=== PATIENT | male | born 1960 | race Caucasian/White ===

== ENCOUNTER 2020-08-17 06:10 | Outpatient (REF) | payer OTHER, SELFPAY ==
[2020-08-17 06:47] LABS: COVID-19 Test Negative (Negative)
== END 2020-08-17 06:11 | disposition home or self-care (01) ==
LOC: HO.LAB 06:10
PROVIDERS: Visit Provider Internal Medicine
DX: Z20.828 Contact with and (suspected) exposure to other viral communicable diseases (principal)
CPT/HCPCS: 87635

== ENCOUNTER → 2021-10-25 10:46 | Outpatient (BNVA) | payer OTHER, SELFPAY | PROVIDERS: PCP Nurse Practitioner Family; Visit Provider Internal Medicine Pulmonary Disease ==

== ENCOUNTER 2021-11-12 07:48 | Outpatient (REF) | payer OTHER, SELFPAY ==
--- NOTE | 2021-11-12 14:37 | PFT_ITS ---
FLOWS: FEV1 79% of predicted at 2.22 L. FVC 109% of predicted at 4.10 L. FEV1 to FVC ratio of 0.51. No bronchodilator response. LUNG VOLUMES: Total lung capacity 99% of predicted at 5.78 L. Residual volume 98% of predicted at 1.93 L. Slow vital capacity 100% of predicted at 3.85 L. Expiratory reserve volume 156% of predicted at 1.5 L. Diffusion capacity is moderately decreased. IMPRESSION: No obstruction or restriction. No bronchodilator response. Decreased diffusion capacity suggests underlying emphysema for pulmonary edema or interstitial lung disease. Clinical correlation is advised. MD TAYE Naik/MODL / [id number]
== END 2021-11-12 07:49 | disposition home or self-care (01) ==
LOC: HO.RESP 07:48
PROVIDERS: PCP Nurse Practitioner Family; Visit Provider Internal Medicine Pulmonary Disease
DX: J44.9 Chronic obstructive pulmonary disease, unspecified (principal)
CPT/HCPCS: 94060; 94727; 94729

== ENCOUNTER → 2021-11-22 09:11 | Outpatient (BNVA) | payer OTHER, SELFPAY | PROVIDERS: PCP Nurse Practitioner Family; Visit Provider Internal Medicine Pulmonary Disease ==

== ENCOUNTER 2022-01-02 07:36 | Outpatient (REF) | payer OTHER, SELFPAY ==
--- NOTE | ~2022-01-02 | CT_ITS ---
EXAMINATION: CT CHEST WITHOUT CONTRAST CLINICAL INFORMATION: Nonspecific abnormal finding of the lungs COMPARISON: None TECHNIQUE: Multidetector volumetric CT imaging of the chest was done. Axial MIP volume rendering provided. Sagittal and coronal reformatted images were obtained. This CT examination was performed using dose optimization techniques as appropriate, variously including the following: *Automated exposure control *Adjustment of mA and/or kV according to patient size (this includes techniques or standardized protocols for targeted exams where dose is matched to indication/reason for exam; i.e. extremities or head) *Use of iterative reconstruction technique DLP: 108 mGy-cm FINDINGS: WATERSHED MANAGER: Scoliotic curvature of the spine with tortuous aorta. LUNGS: The central airways are patent. Mild bronchial wall thickening. Severe paraseptal and centrilobular emphysema. Minimal groundglass opacity of both lower lobes noted. No dense consolidation. No pneumothorax. There is a left lower lobe 0.2 cm nodule on series 7 image 411. Subpleural 0.2 cm left lower lobe nodule on image 325. There is a 0.3 cm right upper lobe nodule on image 230. MEDIASTINUM: Normal heart size. Coronary artery calcifications. No pericardial effusion. No mediastinal lymphadenopathy. PLEURA: There is no pleural effusion. No pleural mass or thickening. AXILLA: No lymphadenopathy. UPPER ABDOMEN: Unremarkable. OSSEOUS STRUCTURES: No acute or suspicious osseous abnormality. Multiple thoracic vertebral body compression deformities noted. Degenerative changes throughout the spine. CT/CT chest wo con IMPRESSION: Severe emphysema. Tiny pulmonary nodules noted measuring up to 0.3 cm. Consider 12 month follow-up chest CT. Minimal groundglass opacities are seen in the lower lobes, nonspecific but possibly associated with air trapping or chronic lung disease. Fleischner guidelines were followed.
== END 2022-01-02 07:37 | disposition home or self-care (01) ==
LOC: HO.CT 07:36
PROVIDERS: PCP Nurse Practitioner Family; Visit Provider Internal Medicine Pulmonary Disease
DX: R91.8 Other nonspecific abnormal finding of lung field (principal)
CPT/HCPCS: 71250

== ENCOUNTER → 2022-01-24 08:42 | Outpatient (BNVA) | payer OTHER, SELFPAY | PROVIDERS: PCP Nurse Practitioner Family; Visit Provider Internal Medicine Pulmonary Disease | DX: Z13.89 Encounter for screening for other disorder (principal) ==

== ENCOUNTER 2022-06-25 08:36 | Emergency (ER) | payer OTHER, SELFPAY ==
--- NOTE | ~2022-06-25 | CT_ITS ---
EXAMINATION: CT CHEST WITHOUT CONTRAST CLINICAL INFORMATION: Right posterior rib pain status post fall. COMPARISON: Chest CT scan dated 01/02/2022. TECHNIQUE: Multidetector volumetric CT imaging of the chest was done. Axial MIP volume rendering provided. Sagittal and coronal reformatted images were obtained. This CT examination was performed using dose optimization techniques as appropriate, variously including the following: *Automated exposure control *Adjustment of mA and/or kV according to patient size (this includes techniques or standardized protocols for targeted exams where dose is matched to indication/reason for exam; i.e. extremities or head) *Use of iterative reconstruction technique DLP: 237 mGy-cm FINDINGS: LUNGS/PLEURA/AIRWAYS: Moderate to severe upper lobe predominant centrilobular as well as mild to moderate paraseptal emphysema is again seen without significant change. No significant/suspicious pulmonary nodules are seen. Mild linear atelectasis/scarring is seen in the right middle lobe, lingula and lung bases. There are no pleural effusions. The airways are patent. MEDIASTINUM: Unremarkable thyroid gland. The thoracic aorta shows mild atherosclerosis in the arch without significant dilatation. Moderate coronary artery calcifications. No pericardial effusion. UPPER ABDOMEN: MUSCULOSKELETAL: The ribs appear intact without acute fracture. Mild mid thoracic levoscoliosis with apex at T8-9. Multilevel superior endplate compression deformities are again seen without significant change, most pronounced at at T6 with associated increased kyphosis. Mild degenerative changes are noted at the sternomanubrial joint. The sternum is intact with mild carinatum deformity. SOFT TISSUES: Unremarkable. CT/CT chest wo IV con IMPRESSION: 1. No evidence for acute traumatic injury. Chronic multilevel vertebral body compression deformities and scoliosis without significant interval change. 2. Centrilobular/paraseptal emphysema without significant change. No significant new/suspicious pulmonary abnormality. No acute cardiopulmonary process. Following Fleischner Society guidelines, imaging follow-up is recommended as clinically indicated.
--- NOTE | ~2022-06-25 | XR_ITS ---
EXAMINATION: XR RIBS, RIGHT, PA CHEST CLINICAL INFORMATION: Right lower chest pain. COMPARISON: Chest CT scan dated 01/02/2022 TECHNIQUE: 3 views of the right ribs were obtained along with a PA view of the chest. A skin marker was placed over the inferior right ribs. FINDINGS: Lungs are clear. No consolidation, pneumothorax, or pleural effusion. The cardiomediastinal silhouette and pulmonary vasculature are normal. The right ribs appear intact without overt fracture. Thoracolumbar scoliosis and vertebral body compression deformities are again seen without significant change. XR/XR ribs RT min 3V w CXR1V IMPRESSION: Unremarkable examination.
[2022-06-25 08:49] VITALS: BP 119/73; PULSE 65; RESP 18; TEMP 36.7; O2SAT 98; BMI 28.0
[2022-06-25 09:20] LABS: COVID-19 Test Negative (Negative); IDNOW Serial# 16C4AD1C
--- NOTE | 2022-06-25 09:25 | ED_ITS ---
HPI - Back Pain/Injury General Chief Complaint: Back Pain/Injury Stated Complaint: R side pain Time Seen by Provider: 06/25/22 09:11 Source: patient Mode of arrival: ambulatory Limitations: no limitations History of Present Illness HPI Narrative: 62 yo male with history of seizure disorder presents to the ER for evaluation of right lower posterior rib pain for the last week-week and a half. He sustained a fall 2 weeks ago and fell on his right side. He did not have immediate pain to the right posterior ribs after the fall. The pain started several days later. He reports the pain is worse with deep breaths, specific movements and when lying on his left side. It is also worse with palpation. He denies any blood in his urine, dysuria, frequency or urgency. He denies any fever or chills. He denies any lower extremity swelling. No chest pain or shortness of breath. MD elicited complaint: back pain and back injury Onset (ago): day(s) (7-10) Timing: constant and progressively worsening Severity: moderate Pain scale (0-10): 6 Quality: aching Location: right flank Radiation: none Exacerbating factors: movement, deep breaths and coughing/sneezing Relieving factors: sitting upright Context: fall Associated symptoms: denies other symptoms Treatments prior to arrival: acetaminophen Work related injury: No Related Data Home Medications Medication Instructions Recorded Confirmed ipratropium 20 mcg-albuterol 100 1 puff inhalation Q6H 10/25/21 10/25/21 mcg/actuation mist for inhalation (Combivent Respimat) phenytoin sodium extended 30 mg 450 mg PO 10/25/21 10/25/21 capsule (Dilantin) Previous Rx's Medication Instructions Recorded lidocaine 5 % topical patch 1 patch topical DAILY #15 ea 06/25/22 naproxen 500 mg tablet 500 mg PO BID PRN pain #20 tabs 06/25/22 Allergies Allergy/AdvReac Type Severity Reaction Status Date / Time No Known Allergies Allergy Verified 01/24/22 08:44 [No Known Allergies*] Review of Systems Review of Systems: Constitutional: No Fever, No Chills ENT/Mouth: No sore throat, No Rhinorrhea Cardiovascular: No Chest Pain, No SOB, No Orthopnea, No Edema Respiratory: No Cough, No Sputum, No Wheezing, No dyspnea Gastrointestinal: No Nausea, No Vomiting, No Diarrhea, No abdominal Pain Genitourinary: No Dysuria, No Urinary Frequency, No Hematuria Musculoskeletal: + joint pain, + Myalgias Skin: No Skin Lesions, No rash Neuro: No Weakness, No Numbness, No Dizziness, No Headache Psych: No Anxiety/Panic, No Depression Heme/Lymph: No Bruising, No Lymphadenopathy Endocrine: No Polyuria, No Polydipsia PMFSH Social History Social History Advance Directives: No Advance Directives Information Provided: Yes Physical Exam Vital Signs: Vital Signs: Last Vital Signs Temp 98.1 F 06/25/22 08:49 Pulse 65 06/25/22 08:49 Resp 18 06/25/22 08:49 BP 119/73 06/25/22 08:49 Pulse Ox 98 06/25/22 08:49 O2 Del Method 06/25/22 08:49 BMI result Body Mass Index 28.0 Appearance: Alert. Oriented X3. No acute distress. Eyes: Pupils equal, round and reactive to light. ENT: Pharynx normal. Neck: Normal inspection. Neck supple. CVS: Normal heart rate and rhythm. Pulses normal. Respiratory: No respiratory distress. Breath sounds normal. Abdomen: Soft and nontender. No RUQ tenderness. +BS x4 Back: Normal inspection. Right flank/right lower posterior ribs with moderate tenderness. No crepitus. No ecchymosis. Skin: Skin warm and dry. Normal skin color. Normal skin turgor. No rashes. Extremities: No lower extremity edema. Neuro: Oriented X 3. No motor deficit. No sensory deficit. Course Course Course Narrative: 62-year-old male presents to the ER for evaluation of right lower, posterior rib pain after fall 2 weeks ago. His pain started several days after the fall which is not consistent with a rib fracture. He has been coughing and this is making the pain worse. Question developing pneumonia. Will also need to rule out PE. On arrival to the ER his vital signs are within normal limits. He is saturating 98% on room air. Will get lab workup including D-dimer. Will decide on CT scan with or without contrast after the D-dimer results. His chest x-ray of the ribs did not show any acute fractures. Reevaluation(s) Reevaluation #1: Lab workup is normal. Will get dry CT scan to evaluate his pain. Reevaluation #2: CT scan did not show any acute traumatic injuries. No broken ribs. There are chronic multi level vertebral body compression deformities and scoliosis without significant change from December exam. He has emphysematous changes in his lungs but no new pulmonary abnormality. Results were discussed with the patient. Will start him on anti-inflammatory medication as well as lidocaine patches. Declining need for opiates, he is sleeping well at night, and pain is not keeping him up. He is stable for discharge home with outpatient follow-up and supportive care. MDM - Back Pain/Injury Lab Data Result diagrams: 06/25/22 09:36 06/25/22 09:36 Labs: Lab Results 06/25/22 06/25/22 06/25/22 Range/Units 08:53 09:36 09:36 WBC 7.2 (4.8-10.8) X10*3/uL RBC 5.05 (4.60-5.80) X10*6/uL Hgb 15.3 (14.0-18.0) g/dl Hct 45.9 (42.0-52.0) % MCV 90.9 (80.0-98.0) fL MCH 30.3 (27.0-33.0) pg MCHC 33.3 (31.0-36.0) g/dl RDW 13.0 (11.0-16.0) % Plt Count 268 (160-400) X10*3/uL MPV 9.3 L (9.4-12.4) fL Immature Gran % (Auto) 0.4 (0.0-0.4) % Neut % (Auto) 68.9 (45-73) % Lymph % (Auto) 14.9 L (20-40) % [place] % (Auto) 12.9 H (2-11) % Eos % (Auto) 2.2 (0-4) % Baso % (Auto) 0.7 (0-2) % Lymph # (Auto) 1.1 L (1.2-4.9) X10*3/uL [place] # (Auto) 0.9 (0.1-1.2) X10*3/uL Eos # (Auto) 0.2 (0.0-0.4) X10*3/uL Baso # (Auto) 0.1 (0.0-0.2) X10*3/uL Abs Immat Gran (auto) 0.03 (0.00-0.03) X10*3/uL Absolute Neuts (auto) 5.0 (2.0-8.3) x10*3/uL Absolute Nucleated RBC 0.000 (0.0-0.012) X10*3/uL Nucleated RBC % (auto) 0.0 (0.0-0.2) /100WBC PT 11.0 (10.0-13.1) SEC INR 1.0 (0.9-1.1) APTT 35.6 (26.0-36.4) SEC D-Dimer High Sensitivty < 150 NG/ML Sodium (135-145) mmol/L Potassium (3.3-5.1) mmol/L Chloride (96-108) mmol/L Carbon Dioxide (22-29) mmol/L Anion Gap (12-20) BUN (9-16) mg/dL Creatinine (0.5-1.4) mg/dL Estim Creat Clear Calc Estimated GFR Random Glucose (60-115) mg/dL Calcium (8.4-10.2) mg/dL Magnesium (1.6-2.6) mg/dL Total Bilirubin (0.0-1.0) mg/dL Direct Bilirubin (0.0-0.5) mg/dL AST (5-37) U/L ALT (0-40) U/L Alkaline Phosphatase (39-117) U/L Total Protein (6.5-8.0) g/dL Albumin (3.5-5.0) g/dL COVID-19 (JESSICA) Negative (Negative) COVID-19 Clin Com See Note 06/25/22 Range/Units 09:36 WBC (4.8-10.8) X10*3/uL RBC (4.60-5.80) X10*6/uL Hgb (14.0-18.0) g/dl Hct (42.0-52.0) % MCV (80.0-98.0) fL MCH (27.0-33.0) pg MCHC (31.0-36.0) g/dl RDW (11.0-16.0) % Plt Count (160-400) X10*3/uL MPV (9.4-12.4) fL Immature Gran % (Auto) (0.0-0.4) % Neut % (Auto) (45-73) % Lymph % (Auto) (20-40) % [place] % (Auto) (2-11) % Eos % (Auto) (0-4) % Baso % (Auto) (0-2) % Lymph # (Auto) (1.2-4.9) X10*3/uL [place] # (Auto) (0.1-1.2) X10*3/uL Eos # (Auto) (0.0-0.4) X10*3/uL Baso # (Auto) (0.0-0.2) X10*3/uL Abs Immat Gran (auto) (0.00-0.03) X10*3/uL Absolute Neuts (auto) (2.0-8.3) x10*3/uL Absolute Nucleated RBC (0.0-0.012) X10*3/uL Nucleated RBC % (auto) (0.0-0.2) /100WBC PT (10.0-13.1) SEC INR (0.9-1.1) APTT (26.0-36.4) SEC D-Dimer High Sensitivty NG/ML Sodium 136 (135-145) mmol/L Potassium 4.9 (3.3-5.1) mmol/L Chloride 101 (96-108) mmol/L Carbon Dioxide 27 (22-29) mmol/L Anion Gap 13 (12-20) BUN 15 (9-16) mg/dL Creatinine 1.04 (0.5-1.4) mg/dL Estim Creat Clear Calc 64.5 Estimated GFR > 60 Random Glucose 93 (60-115) mg/dL Calcium 9.7 (8.4-10.2) mg/dL Magnesium 1.9 (1.6-2.6) mg/dL Total Bilirubin 0.4 (0.0-1.0) mg/dL Direct Bilirubin 0.2 (0.0-0.5) mg/dL AST 21 (5-37) U/L ALT 16 (0-40) U/L Alkaline Phosphatase 106 (39-117) U/L Total Protein 7.3 (6.5-8.0) g/dL Albumin 4.5 (3.5-5.0) g/dL COVID-19 (JESSICA) (Negative) COVID-19 Clin Com Discharge Plan Discharge Clinical Impression: Contusion of rib on right side Patient Disposition: Home, Self-Care Instructions: Rib Contusion (ED) Additional Instructions: Your lab workup today was unremarkable. Your CT scan did not show any evidence of acute traumatic injuries. No broken ribs. Recommend using the prescribed lidocaine patches and taking the prescribed anti- inflammatory as needed for pain. Recommend using ice several times a day for the next 48 hours and then switch to heat. Follow-up with her primary care doctor. If you develop new or worsening symptoms call 911 or come back to the ER for further evaluation. Prescriptions: New lidocaine 5 % adhesive patch,medicated 1 patch topical DAILY Qty: 15 0RF Rx Instructions: leave on most painful area for up to 12 hrs naproxen 500 mg tablet 500 mg PO BID PRN (Reason: pain) Qty: 20 0RF No Action Dilantin 30 mg capsule 450 mg PO Combivent Respimat 20-100 mcg/actuation mist 1 puff inhalation Q6H
[2022-06-25 09:45] LABS: MANUAL DIFF FLAG NO
[2022-06-25 09:47] LABS: Basophils Absolute Auto 0.1 X10*3/uL (0.0-0.2); Basophils Percent Auto 0.7 % (0-2); Eosinophils Absolute Auto 0.2 X10*3/uL (0.0-0.4); Eosinophils Percent Auto 2.2 % (0-4); Hematocrit 45.9 % (42.0-52.0); Hemoglobin 15.3 g/dl (14.0-18.0); Imm Gran Abs Auto 0.03 X10*3/uL (0.00-0.03); Imm Gran Pct Auto 0.4 % (0.0-0.4); Lymphocytes Absolute Auto 1.1 X10*3/uL (1.2-4.9); Lymphocytes Percent Auto 14.9 % (20-40); Mean Corpuscular HGB Conc 33.3 g/dl (31.0-36.0); Mean Corpuscular Hemoglobin 30.3 pg (27.0-33.0); Mean Corpuscular Volume 90.9 fL (80.0-98.0); Mean Platelet Volume 9.3 fL (9.4-12.4); Monocytes Absolute Auto 0.9 X10*3/uL (0.1-1.2); Monocytes Percent Auto 12.9 % (2-11); Neutrophils Percent Auto 68.9 % (45-73); Platelet Count 268 X10*3/uL (160-400); Red Blood Count 5.05 X10*6/uL (4.60-5.80); White Blood Count 7.2 X10*3/uL (4.8-10.8)
[2022-06-25 09:56] LABS: Partial Thromboplastin Time 35.6 SEC (26.0-36.4)
[2022-06-25 09:57] LABS: D Dimer High Sensitivity < 150 NG/ML
[2022-06-25 10:09] LABS: Alanine Aminotransferase 16 U/L (0-40); Albumin Level 4.5 g/dL (3.5-5.0); Alkaline Phosphatase 106 U/L (39-117); Anion Gap 13 (12-20); Aspartate Amino Transferase 21 U/L (5-37); Bilirubin Direct 0.2 mg/dL (0.0-0.5); Bilirubin Total 0.4 mg/dL (0.0-1.0); Blood Urea Nitrogen 15 mg/dL (9-16); Calcium 9.7 mg/dL (8.4-10.2); Carbon Dioxide 27 mmol/L (22-29); Chloride 101 mmol/L (96-108); Creatinine Clr Calc Pharmacy 64.5; Estimated Glomerular Filt Rate > 60; Glucose Random 93 mg/dL (60-115); Magnesium 1.9 mg/dL (1.6-2.6); Potassium 4.9 mmol/L (3.3-5.1); Sodium 136 mmol/L (135-145); Total Protein 7.3 g/dL (6.5-8.0)
== END 2022-06-25 11:40 | disposition home or self-care (01) ==
PROVIDERS: Physician Assistant; Emergency Provider Emergency Medicine; PCP Nurse Practitioner Family
DX: S20.211A Contusion of right front wall of thorax, initial encounter (principal); W19.XXXA Unspecified fall, initial encounter; Z20.822 Contact with and (suspected) exposure to COVID-19; Y93.9 Activity, unspecified; Y92.9 Unspecified place or not applicable; Y99.9 Unspecified external cause status
CPT/HCPCS: 36415; 71101; 71250; 80048; 80076; 83735; 85025; 85379; 85610; 85730; 87635; 99282; 99284

== ENCOUNTER 2023-01-15 06:39 | Outpatient (REF) | payer OTHER, SELFPAY ==
--- NOTE | ~2023-01-15 | CT_ITS ---
EXAMINATION: CT CHEST WITHOUT CONTRAST CLINICAL INFORMATION: Pulmonary nodules COMPARISON: 06/25/2022 TECHNIQUE: Multidetector volumetric CT imaging of the chest was done. Axial MIP volume rendering provided. Sagittal and coronal reformatted images were obtained. This CT examination was performed using dose optimization techniques as appropriate, variously including the following: *Automated exposure control *Adjustment of mA and/or kV according to patient size (this includes techniques or standardized protocols for targeted exams where dose is matched to indication/reason for exam; i.e. extremities or head) *Use of iterative reconstruction technique DLP: 222 FINDINGS: LUNGS: Moderate to severe emphysema. Mild bronchial wall thickening seen to a greater degree in the bilateral lower lobes likely reflects chronic small airways inflammation or infection. Right middle lobe subpleural 9 mm nodule (5:295) may reflect focal scarring versus a nodule, similar to prior study. MEDIASTINUM: No mediastinal adenopathy. Lack of IV contrast limits evaluation for hilar adenopathy. Dense coronary artery atherosclerotic calcifications. PLEURA: There is no pleural effusion. No pleural mass or thickening. AXILLA: No lymphadenopathy. UPPER ABDOMEN: Unremarkable. OSSEOUS STRUCTURES/SOFT TISSUES: Degenerative changes of the spine. Healing right 10th and [address]/CT chest wo IV con IMPRESSION: 1. Right middle lobe subpleural 9 mm nodule may reflect focal scarring versus a nodule, similar to prior study. 2. Moderate to severe emphysema. 3. Mild bronchial wall thickening seen to a greater degree in the bilateral lower lobes likely reflects chronic small airways inflammation or infection. According to the UPDATED 2017 Fleischner Society recommendations, the advised followup imaging for a single solid nodule measuring 8 mm or greater is: Consider CT, PET/CT, or tissue sampling at 3 months.
== END 2023-01-15 06:40 | disposition home or self-care (01) ==
LOC: HO.CT 06:39
PROVIDERS: PCP Nurse Practitioner Family; Visit Provider Internal Medicine Pulmonary Disease
DX: R91.8 Other nonspecific abnormal finding of lung field (principal)
CPT/HCPCS: 71250

== ENCOUNTER → 2023-01-24 09:36 | Outpatient (BNVA) | payer OTHER, SELFPAY | PROVIDERS: PCP Nurse Practitioner Family; Visit Provider Internal Medicine Pulmonary Disease | DX: Z13.89 Encounter for screening for other disorder (principal) ==

== ENCOUNTER 2023-08-08 10:53 | Outpatient (AMB) | payer OTHER, SELFPAY ==
--- NOTE | 2023-08-08 13:25 | AM.OFFWIN_ITS ---
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 Patient Tobacco Use Status: Former Tobacco user Allergies No Known Allergies [No Known Allergies*] Allergy (Verified 08/08/23 13:28) Do you need a note to return to daycare/school/sports/work: Yes HPI HPI Comments History of Present Illness Details This is a 63-year-old male who presents to the office today for sick visit. Patient complaining of a productive cough, low-grade fevers ( T-max of 100.7? F), myalgias/ arthralgias, and mild shortness of breath with heavy exertion for the past 3 days. He denies a history of asthma or COPD but he has a documented history of COPD as well as Combivent inhaler. He denies any lower extremity swelling. He denies any recent travel, surgery, or immobilization. [facility] Social History Patient Tobacco Use Status: Former Tobacco user Review of Systems Const All systems reviewed & are unremarkable except as noted in HPI and below Reports no additional complaints Eyes Reports no additional complaints ENT Reports no additional complaints Card Reports no additional complaints Resp Reports no additional complaints GI Reports no additional complaints Reports no additional complaints Musc Reports no additional complaints Skin/Breast Reports system reviewed and no additional complaints, except as documented Neuro Reports no additional complaints Psych Reports no additional complaints Endo Reports no additional complaints Mc/Lymph Reports no additional complaints Aller/Immun Reports no additional complaints Physical Exam Vital Signs: Last Vital Signs Temp 99.4 F 08/08/23 13:26 Pulse 124 H 08/08/23 13:26 BP 112/54 L 08/08/23 13:26 Pulse Ox 90 L 08/08/23 13:26 Oxygen Delivery Method Room Air 08/08/23 13:26 Const Other: Vital signs reviewed. Constitutional: Non-toxic appearing. No acute distress. Well-developed and well-nourished. HEENT: Normocephalic and atraumatic. Skin: Warm and dry. No rashes or lesions noted. Neck: Full and painless range of motion. No cervical lymphadenopathy. Cardio: Tachycardic but regular rhythm. No murmurs, gallops, or rubs. No lower extremity edema. No JVD. Pulmonary: No respiratory distress. No accessory muscle usage. Scant expiratory wheezing throughout. Gastrointestinal: Soft, non-tender, and non-distended in all 4 quadrants. Normoactive bowel sounds in all 4 quadrants. Musculoskeletal: Normal range of motion in joints throughout the body. No deformity or other signs of injury. Neuro: Alert and oriented x4. Cranial nerves 2-12 grossly intact. No focal deficits appreciated. Psych: Normal mood and affect. Assessment & Plan Assessment & Plan (1) Acute bronchitis: Code(s): J20.9 - Acute bronchitis, unspecified (2) COPD with acute exacerbation: Code(s): J44.1 - Chronic obstructive pulmonary disease with (acute) exacerbation (3) Community acquired pneumonia: Code(s): J18.9 - Pneumonia, unspecified organism Plan This is a 63-year-old male presenting to the office complaining of low-grade fevers, productive cough, and mild shortness of breath. On physical examination, he had scant expiratory wheezing but he is otherwise nontoxic appearing. Patient has a documented history of chronic obstructive pulmonary disease and his oxygen saturation is 90% on room air, which is borderline low but in light of COPD history, 90% is within the goal oxygen saturation range. Patient is also tachycardic, which I think is related to likely pneumonia and COPD exacerbation. I have very low suspicion for pulmonary embolism at this time given no lower extremity edema, no recent travel/surgery/immobilizations, and no risk factors for hypercoagulability though I did bring up the concern of PE with the patient but he was not interested in proceeding to emergency room at this time. History and physical most consistent with acute COPD exacerbation and acute bronchitis in the setting of upper respiratory tract infection and likely community- acquired pneumonia. We will check a chest x-ray. Patient has been sent home on p.o. amoxicillin 1000 mg twice daily x5 days and p.o. azithromycin 500 mg today followed by 250 mg daily x4 days for treatment of presumed community-acquired pneumonia. He was also sent home on benzonatate 100 mg 3 times daily as needed. He was also sent home on a prednisone taper for likely COPD exacerbation. Patient was advised to follow-up here or proceed directly to the emergency room if he were to develop worsening fever/ chills, worsening sputum production, worsening shortness of breath, or hemoptysis. Patient feels comfortable going home at this time. He verbalized his understanding and he is in agreement with the plan. Orders: Orders 2 XR chest 2V Today R05.9 - Cough, unspecified Medications: New amoxicillin 1,000 mg (2 x 500 mg) PO Q12H 10 caps 0RF benzonatate 100 mg PO TID PRN 20 caps 0RF cough prednisone take 4 tablets daily x3 days followed by 3 tablets daily x3 days followed by 2 tablets daily x3 days followed by 1 tablet daily x3 days followed by 1/2 tablet daily x2 days. 10 mg PO DIRECTED 31 tabs 0RF prednisone 40 mg (2 x 20 mg) PO DAILY 10 tabs 0RF azithromycin For 250 mg dose pack: take 500 mg today (day 1), then 250 mg for 4 days (days 2-5) PO 6 tabs 0RF Coding Level of Care Code New Pt Level 3 (53433) Diagnoses Acute bronchitis J20.9 COPD with acute exacerbation J44.1 Community acquired pneumonia J18.9
[2023-08-08 13:26] VITALS: BP 112/54; PULSE 124; TEMP 37.4; O2SAT 90
== END 2023-08-08 14:00 | disposition home or self-care (01) ==
PROVIDERS: PCP Nurse Practitioner Family; Visit Provider Physician Assistant Medical
DX: J20.9 Acute bronchitis, unspecified (principal); J44.1 Chronic obstructive pulmonary disease with (acute) exacerbation; J18.9 Pneumonia, unspecified organism
CPT/HCPCS: 99203

== ENCOUNTER 2023-08-08 13:48 | Outpatient (REF) | payer OTHER, SELFPAY ==
--- NOTE | ~2023-08-08 | XR_ITS ---
EXAMINATION: XR CHEST CLINICAL INFORMATION: Cough. COMPARISON: 06/25/2022. TECHNIQUE: 2 views of the chest were obtained. FINDINGS: The cardiomediastinal silhouette is stable. The lung rosado are hyperinflated. There is mild diffuse interstitial prominence. There is no focal lung consolidation or evidence for significant pleural effusion. There is an apparent mid to upper thoracic compression fracture. XR/XR chest 2V IMPRESSION: COPD. No focal consolidation or significant pleural effusion. Mid to upper thoracic compression fracture. A T6 compression fracture was seen on CT performed 01/02/2022.
== END 2023-08-08 13:49 | disposition home or self-care (01) ==
LOC: HO.HMGCX 13:48
PROVIDERS: PCP Nurse Practitioner Family; Visit Provider Physician Assistant Medical
DX: R05.9 Cough, unspecified (principal)
CPT/HCPCS: 71046

== ENCOUNTER 2023-10-29 08:56 | Inpatient (IN) | payer OTHER, SELFPAY ==
[2023-10-29] VITALS (9 sets, daily range): BP systolic 100–121; BP diastolic 51–66; PULSE 96–120; RESP 16–22; TEMP 36.7–37.8; O2SAT 88–95; BMI 25.8
[2023-10-29 09:58] LABS: Alanine Aminotransferase 16 U/L (0-40); Albumin Level 4.2 g/dL (3.5-5.0); Alkaline Phosphatase 100 U/L (39-117); Anion Gap 10 (12-20); Aspartate Amino Transferase 27 U/L (5-37); Bilirubin Direct 0.2 mg/dL (0.0-0.5); Bilirubin Total 0.4 mg/dL (0.0-1.0); Blood Urea Nitrogen 10 mg/dL (9-16); Calcium 9.6 mg/dL (8.4-10.2); Carbon Dioxide 25 mmol/L (22-29); Chloride 105 mmol/L (96-108); Estimated Glomerular Filt Rate > 60; Glucose Random 113 mg/dL (60-115); Lipase 19 U/L (8-78); Potassium 4.5 mmol/L (3.3-5.1); Sodium 135 mmol/L (135-145); Total Protein 7.3 g/dL (6.5-8.0)
--- NOTE | 2023-10-29 10:22 | ED.GENADULT ---
HPI - General Adult General Chief complaint: General Medical Stated complaint: Fever Time Seen by Provider: 10/29/23 10:18 Source: patient Mode of arrival: ambulatory Limitations: no limitations History of Present Illness HPI narrative: 63-year-old male presents with fatigue, malaise, myalgias, productive cough (very thick yellowgreen sputum) that is been ongoing for the past two months worsening. Also reports fevers and chills, he has been taking Tylenol with little to no relief. 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 Patient denies chest pain, shortness of breath, nausea, vomiting, abdominal pain, headache, vision changes, dizziness and weakness. Patient does have COPD does not wear home oxygen. Baseline O2 94% on RA Related Data Home Medications Medication Instructions Recorded Confirmed ipratropium 20 mcg-albuterol 100 1 puff inhalation Q6H 10/25/21 10/25/21 mcg/actuation mist for inhalation (Combivent Respimat) phenytoin sodium extended 30 mg 450 mg PO 10/25/21 10/25/21 capsule (Dilantin) Previous Rx's Medication Instructions Recorded lidocaine 5 % topical patch 1 patch topical DAILY #15 ea 06/25/22 naproxen 500 mg tablet 500 mg PO BID PRN pain #20 tabs 06/25/22 amoxicillin 500 mg capsule 1,000 mg (2 x 500 mg) PO Q12H #10 08/08/23 caps azithromycin 250 mg tablet See Rx Instructions PO .COMPLEX #6 08/08/23 tabs benzonatate 100 mg capsule 100 mg PO TID PRN cough #20 caps 08/08/23 prednisone 10 mg tablet 10 mg PO DIRECTED #31 tabs 08/08/23 prednisone 20 mg tablet 40 mg (2 x 20 mg) PO DAILY #10 tabs 08/08/23 Allergies Allergy/AdvReac Type Severity Reaction Status Date / Time No Known Allergies Allergy Verified 10/29/23 09:15 [No Known Allergies*] Review of Systems Review of Systems: Constitutional : No Weight loss, + Fever, No Chills, + Fatigue, + Malaise ENT/Mouth : No sore throat, No Rhinorrhea Eyes: No Eye Pain, No Swelling, No Redness Cardiovascular : No Chest Pain, No SOB, No Dyspnea on Exertion, No Orthopnea, No Edema, No Palpitations Respiratory : + Cough, No Sputum, No Wheezing Gastrointestinal : No Nausea, No Vomiting, No Diarrhea, No Constipation, No abdominal Pain, No Hematochezia, No Melena Genitourinary : No Dysuria, No Urinary Frequency, No Hematuria, Musculoskeletal : No joint pain, + Myalgias, No Joint Swelling Skin : No Skin Lesions, No rash Neuro : No Weakness, No Numbness, No Dizziness, No Headache Psych : No Anxiety/Panic, No Depression All other systems reviewed and are negative Yes all other systems are reviewed and are negative [facility] Past Medical History Attestation statement: The following information was validated with the patient. Source: old records reviewed and nursing notes reviewed Onset Date is defined in the Problem List Problems that require an onset date and time if occurred within 24 hrs of arrival to the ED Aortic Dissection and Rupture; Neurologic impairment; Cardiopulmonary Arrest; Endotracheal Intubation; Insertion or Replacement of Mechanical Circulatory Assist Device Social History Social History Patient Tobacco Use Status: Former Tobacco user Advance Directives: No Advance Directives Information Provided: No Physical Exam ED Vital Signs: Vital Signs - 24 hr 10/29/23 09:12 Temperature 99.2 F Pulse Rate 106 H Respiratory Rate 20 Blood Pressure 121/64 Pulse Oximetry 92 Oxygen Delivery Method Room Air BMI result Body Mass Index 25.8 vss Appearance: Alert.? Oriented X3.? No acute distress.? Head: Normocephalic, atraumatic, no step-offs or deformities Eyes: Pupils equal, round and reactive to light.? ENT: Pharynx normal.? Neck: Normal inspection.? Neck supple.? CVS: Rapid regular rhythm likely sinus tachycardia.? Pulses normal.? Respiratory: No respiratory distress.? Breath sounds with expiratory wheezing bilaterally and faint crackles to b/l lower lobes Abdomen: Soft and nontender.? Skin: Skin warm and dry.? Normal skin color.? Normal skin turgor.? Extremities: No lower extremity edema.? No calf ttp. 5/5 strength to bilateral upper and lower extremities Back: No midline tenderness, no C-spine tenderness, full range of motion, no CVA tenderness bilaterally Neuro: Oriented X 3.? No motor deficit.? No sensory deficit. CN 2-12 intact Course Reevaluation(s) Reevaluation #1: Chest x-ray with COPD, severe thoracic compression fracture deformities. CBC with no acute findings. Chemistry unremarkable. Patient noted to be COVID positive. Ambulatory O2 patient is saturating 87% on room air. Complaining of shortness of breath. Plan hospital admission Time: 10:34 Medical Decision Making Medical Decision Making [facility] Narrative: 63-year-old male presents with fatigue, malaise, myalgias, productivecough for a few months. 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 Unlikely ACS, PE, dissection, acute respiratory distress Plan at this time viral testing, basic labs, chest x-ray. Differential Diagnosis Differential Diagnoses: The differential diagnosis associated with the presentation includes History and physical exam concerning for possible chronic lung condition versus viral illness versus flu versus COVID versus RSV versus bronchitis. Unlikely ACS, PE, dissection, acute respiratory distress Admission/Observation Consideration of admission/observation: Escalation of care including admission/observation considered Possible Lab Data [facility] Lab Attestation statement: I reviewed the patient's lab results. 10/29/23 09:31 10/29/23 09:31 Labs: Lab Results 10/29/23 10/29/23 Range/Units 09:30 09:31 WBC 8.6 (4.8-10.8) X10*3/uL RBC 5.05 (4.60-5.80) X10*6/uL Hgb 15.1 (14.0-18.0) g/dl Hct 45.2 (42.0-52.0) % MCV 89.5 (80.0-98.0) fL MCH 29.9 (27.0-33.0) pg MCHC 33.4 (31.0-36.0) g/dl RDW 13.8 (11.0-16.0) % Plt Count 221 (160-400) X10*3/uL MPV 9.3 L (9.4-12.4) fL Immature Gran % (Auto) 0.3 (0.0-0.4) % Neut % (Auto) 70.6 (45-73) % Lymph % (Auto) 6.7 L (20-40) % Norton % (Auto) 16.7 H (2-11) % Eos % (Auto) 5.1 H (0-4) % Baso % (Auto) 0.6 (0-2) % Lymph # (Auto) 0.6 L (1.2-4.9) X10*3/uL Norton # (Auto) 1.4 H (0.1-1.2) X10*3/uL Eos # (Auto) 0.4 (0.0-0.4) X10*3/uL Baso # (Auto) 0.1 (0.0-0.2) X10*3/uL Abs Immat Gran (auto) 0.03 (0.00-0.03) X10*3/uL Absolute Neuts (auto) 6.1 (2.0-8.3) x10*3/uL Absolute Nucleated RBC 0.000 (0.0-0.012) X10*3/uL Nucleated RBC % (auto) 0.0 (0.0-0.2) /100WBC Sodium 135 (135-145) mmol/L Potassium 4.5 (3.3-5.1) mmol/L Chloride 105 (96-108) mmol/L Carbon Dioxide 25 (22-29) mmol/L Anion Gap 10 L (12-20) BUN 10 (9-16) mg/dL Creatinine 0.96 (0.5-1.4) mg/dL Estim Creat Clear Calc 65.0 Estimated GFR > 60 Random Glucose 113 (60-115) mg/dL Calcium 9.6 (8.4-10.2) mg/dL Total Bilirubin 0.4 (0.0-1.0) mg/dL Direct Bilirubin 0.2 (0.0-0.5) mg/dL AST 27 (5-37) U/L ALT 16 (0-40) U/L Alkaline Phosphatase 100 (39-117) U/L Total Protein 7.3 (6.5-8.0) g/dL Albumin 4.2 (3.5-5.0) g/dL Lipase 19 (8-78) U/L Influenza Type A (PCR) NEGATIVE (Negative) Influenza Type B (PCR) NEGATIVE (Negative) RSV RNA Qual (PCR) NEGATIVE (Negative) SARS-CoV-2 RNA (RT-PCR) POSITIVE A (Negative) Independent Interpretation I performed an independent interpretation of an: Plain X-Ray (unremarkable ) Radiology Impression Discussion of test interpretation with radiology: I have reviewed the radiologist's reading. Chronic Conditions Patient?s care impacted by: Other (copd ) Critical Care Time Critical Care Time Critical Care Time: Yes Total Critical Care Time: 35 Attestation: I attest to this time spent taking care of the patient, obtaining history, physical, reviewing labs, imaging, speaking to hospitalist Discharge Plan Discharge Clinical Impression: COVID-19, COPD (chronic obstructive pulmonary disease) Prescriptions: No Action lidocaine 5 % adhesive patch,medicated 1 patch topical DAILY Qty: 15 0RF Rx Instructions: leave on most painful area for up to 12 hrs naproxen 500 mg tablet 500 mg PO BID PRN (Reason: pain) Qty: 20 0RF prednisone 20 mg tablet 40 mg PO DAILY Qty: 10 0RF azithromycin 250 mg tablet See Rx Instructions PO .COMPLEX Qty: 6 0RF Rx Instructions: For 250 mg dose pack: take 500 mg today (day 1), then 250 mg for 4 days (days 2-5) PO amoxicillin 500 mg capsule 1,000 mg PO Q12H Qty: 10 0RF benzonatate 100 mg capsule 100 mg PO TID PRN (Reason: cough) Qty: 20 0RF prednisone 10 mg tablet 10 mg PO DIRECTED Qty: 31 0RF Rx Instructions: take 4 tablets daily x3 days followed by 3 tablets daily x3 days followed by 2 tablets daily x3 days followed by 1 tablet daily x3 days followed by 1/2 tablet daily x2 days. Dilantin 30 mg capsule 450 mg PO Combivent Respimat 20-100 mcg/actuation mist 1 puff inhalation Q6H
--- NOTE | 2023-10-29 11:23 | PHA.MEDREC ---
Pharmacy Consult ? Medication Reconciliation Pharmacy has completed the medication reconciliation. spoke with patient to confirm medications. He reports taking vitamin C and magnesium but is unsure of the doses.
[2023-10-29 11:47] LABS: Procalcitonin 0.05 ng/mL
--- NOTE | 2023-10-29 11:47 | PC.NURSE ---
pt receiving breathing treatment at this time.
--- NOTE | 2023-10-29 12:08 | PC.NURSE ---
medication administered per provider order. pt did not respond to treatment via RT - states that it did not help. RT placed pt on 2L via NC for support. no sob/wob noted. respirations even and unlabored. bedside for support. call workman placed within reach.
--- NOTE | 2023-10-29 13:16 | PM.IMHP ---
History of Present Illness Date of Service: 10/29/23 Attending physician on admission: Rupa Carbajal Chief Complaint: Fever and shortness of breath. Denny Mckeon is a very pleasant 63 years old man past medical history significant for chronic obstructive pulmonary disease -not home O2 use and seizure disorder presents to the emergency department complaining of fever associated with general body aches, headache and generalized weakness over the last few days, however, he has been feeling unwell over the last few months. He also complains shortness of breadth and productive cough of yellowish sputum. 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 He denied any chest pain, palpitations, dizziness or loss of consciousness. He denies any gastrointestinal or genitourinary smptoms. He is a former Tobacco smoker, quit several months ago. He denied alcohol abuse or illicit drug use. He does not use inhalers at home. In the ED, he was found to mild tachycardia, oxygen saturation 87-88% (with ambulation) and temperature 100.1 degrees. Blood workup is remarkable for monocytosis and lymphopenia. He has no electrolyte imbalances and LFTs are normal. Procalcitonin is normal. CXR showed finding consistent with COPD; it also showed several compression fractures deformities (probably old). ED tx: Albuterol neb X1, Solu-Medrol 125 mg IV, azithromycin 500 mg IV, ceftriaxone 1 g IV. Review of Systems Review of Systems: All 12 systems were reviewed and normal except as noted in HPI. Yes all other systems are reviewed and are negative [facility] Medical History (Updated 10/29/23 @ 13:45 by Rupa Carbajal MD) Seizure disorder COPD (chronic obstructive pulmonary disease) Social History Patient Tobacco Use Status: Former Tobacco user Meds Allergies Allergy/AdvReac Type Severity Reaction Status Date / Time No Known Allergies Allergy Verified 10/29/23 09:15 [No Known Allergies*] Active Medications: Current Medications Acetaminophen (Acetaminophen 325 Mg Tablet) 650 mg PO Q6H PRN PRN Reason: Fever, pain Albuterol Sulfate (Albuterol Sulfate 90 Mcg 8 Gm Inhaler) 4 puff INHALE RQ4H WHILE AWAKE [facility]AD[facility] Dexamethasone Sodium Phosphate (Dexamethasone Sod Phosphate 4 Mg/Ml Vial) 6 mg IVPUSH DAILY [facility] Enoxaparin Sodium (Enoxaparin Sodium 40 Mg/0.4 Ml Syringe) 40 mg SUBCUT Q24H [facility] Guaifenesin/Dextromethorphan (Guaifenesin Dm 200/20/10 Ml 10 Ml Syrup) 10 ml PO QID [facility] Remdesivir 200 mg/ Sodium (Chloride) 210 mls @ 105 mls/hr IV ONCE ONE Stop: 10/29/23 16:59 Remdesivir 100 mg/ Sodium (Chloride) 230 mls @ 115 mls/hr IV Q24H [facility] Stop: 11/02/23 16:59 Azithromycin 500 mg/ Sodium (Chloride) 250 mls @ 125 mls/hr IV Q24H [facility] Phenytoin (Phenytoin Chewable 50 Mg Tab.Chew) 50 mg PO DAILY [facility] Phenytoin Sodium (Phenytoin Sodium Extended 100 Mg Capsule) 500 mg PO DAILY [facility] Sodium Chloride (0.9 % Sodium Chloride Flush 3 Ml Syringe) 3 ml IVFLUSH QSHIFT [facility] Home Medications Medication Instructions Recorded Confirmed Last Taken Type phenytoin 50 mg chewable tablet 50 mg PO QAM 10/29/23 10/29/23 10/29/23 History phenytoin sodium extended 100 mg 500 mg PO QAM 10/29/23 10/29/23 10/29/23 History capsule Physical Exam Vital Signs and Narrative: Vital Signs: Last Vital Signs Temp 100.1 F 10/29/23 11:28 Pulse 109 H 10/29/23 11:44 Resp 22 H 10/29/23 11:44 BP 101/66 10/29/23 11:28 Pulse Ox 95 10/29/23 12:06 O2 Del Method Nasal Cannula 10/29/23 12:06 O2 Flow Rate 2 10/29/23 12:06 BMI result Body Mass Index 25.8 Const: General: cooperative, comfortable, no acute distress, well developed, alert, awake, ill appearing and other (nasal cannula in place) Orientation/consciousness: patient oriented x3 HEENT: Head: Yes normal to inspection, Yes normocephalic and Yes atraumatic Chest: Chest palpation & inspection: normal inspection of the chest Resp: Effort & Inspection: able to speak in complete sentences, abnormal respiratory pattern, not labored, no use of accessory muscles, prolonged expiratory phase and symmetric chest movement Auscultation: wheezes and diminished lung sounds Cardio: Rate: regular rate Rhythm: regular rhythm Neuro: General: patient oriented x3 Extrem: General: Yes normal to inspection, Yes full ROM, No no clubbing, cyanosis or edema, No calf tenderness and No edema Psych: Appearance: grossly normal and well kempt Mental Status: mental status grossly normal Speech and movement: Normal speech and movement present Affect: normal affect Attitude: cooperative Thought process: Normal thought process present Thought content: Normal thought content present Insight: Good insight present (Psych) Results Labs 10/29/23 09:31 10/29/23 09:31 Labs: Laboratory Results - last 24 hr 10/29/23 10/29/23 09:30 09:31 MCV 89.5 MCH 29.9 MCHC 33.4 RDW 13.8 Plt Count 221 MPV 9.3 L Immature Gran % (Auto) 0.3 Neut % (Auto) 70.6 Lymph % (Auto) 6.7 L Stanton % (Auto) 16.7 H Eos % (Auto) 5.1 H Baso % (Auto) 0.6 Lymph # (Auto) 0.6 L Stanton # (Auto) 1.4 H Eos # (Auto) 0.4 Baso # (Auto) 0.1 Abs Immat Gran (auto) 0.03 Absolute Neuts (auto) 6.1 Absolute Nucleated RBC 0.000 Nucleated RBC % (auto) 0.0 Anion Gap 10 L Estim Creat Clear Calc 65.0 Estimated GFR > 60 Random Glucose 113 Calcium 9.6 Total Bilirubin 0.4 Direct Bilirubin 0.2 AST 27 ALT 16 Alkaline Phosphatase 100 Total Protein 7.3 Albumin 4.2 Lipase 19 Procalcitonin 0.05 Influenza Type A (PCR) NEGATIVE Influenza Type B (PCR) NEGATIVE RSV RNA Qual (PCR) NEGATIVE SARS-CoV-2 RNA (RT-PCR) POSITIVE A Imaging Radiologist's Impressions: Impressions Chest X-Ray 10/29/23 09:40 IMPRESSION: 1. COPD. 2. Several thoracic compression fracture deformities, age indeterminate but probably unchanged since 08/08/2023. Assessment and Plan (1) COPD (chronic obstructive pulmonary disease): Qualifiers: COPD type: COPD with acute exacerbation Qualified Code(s): J44.1 - Chronic obstructive pulmonary disease with (acute) exacerbation Status: Acute (2) COVID-19: Status: Acute (3) Hypoxic respiratory failure: Status: Acute Plan Denny Mckeon is a 63 years old man admitted with: 1. Hypoxic respiratory failure secondary to COVID-19 infection associated with acute COPD exacerbation. Admit to hospitalist service via telemetry. Supplemental oxygen via nasal cannula to keep oxygen > 90%. Continue bronchodilator therapy. Start therapy with remdesivir and Decadron IV. Airborne precautions. Pulmonology consult for further recommendations. 2. Seizure disorder. Continue phenytoin 550 mg PO daily -->100 mg (5 tabs) + 50 mg (1 tab). VTE prophylaxis: Lovenox. Code status: Full Admission for at least 2 midnights for acute hypoxic respiratory failure in the setting of COVID-19 infection and COPD exacerbation. Quality Stroke Does the patient have a stroke diagnosis?: No VTE Prior VTE?: No VTE Risk Level:: Medical - moderate - high VTE Device Contraindication: Treatment Not Indicated VTE Drug Contraindication: N/A - Med Ordered
--- NOTE | 2023-10-29 14:22 | PC.NURSE ---
pt attempting to sleep at this time - O2 dropped to 86%-88% on 2L via NC. pt now placed in 4L via NC - resting at 90%-92%. no sob/wob noted. respirations remain even and unlabored. pt verbalizing 5/10 headache at this time but denies tylenol administration at this time.
--- NOTE | 2023-10-29 14:30 | PC.NURSE ---
pharmacy called/notified that pt needs med delivered at this time. will administer medication when able.
--- NOTE | 2023-10-29 14:38 | PC.NURSE ---
medication delivered from pharmacy/administered.
--- NOTE | 2023-10-29 16:30 | PC.NURSE ---
vss and up to date at this time. medication administered per provider order. pt resting comfortably in no apparent distress. pt waiting for bed placement at this time. call workman placed within reach.
--- NOTE | 2023-10-29 22:50 | PC.NURSE ---
PT resting in bed, in no apparent distress, resp even and unlabored. PT offers no questions or complaints at this time. Awaiting bed assigment. Plan of care ongoing.
[2023-10-30 06:48] LABS: Alanine Aminotransferase 13 U/L (0-40); Alkaline Phosphatase 87 U/L (39-117); Anion Gap 12 (12-20); Aspartate Amino Transferase 24 U/L (5-37); Bilirubin Total 0.3 mg/dL (0.0-1.0); Blood Urea Nitrogen 12 mg/dL (9-16); Calcium 9.5 mg/dL (8.4-10.2); Carbon Dioxide 26 mmol/L (22-29); Chloride 105 mmol/L (96-108); Creatinine Clr Calc Pharmacy 76.2; Estimated Glomerular Filt Rate > 60; Glucose Random 87 mg/dL (60-115); Potassium 4.3 mmol/L (3.3-5.1); Sodium 139 mmol/L (135-145); Total Protein 7.1 g/dL (6.5-8.0)
[2023-10-30 07:21] VITALS: PULSE 95; RESP 16; O2SAT 98
[2023-10-30 11:23] VITALS: PULSE 79; RESP 20; O2SAT 83
--- NOTE | 2023-10-30 12:58 | PC.NURSE ---
pt a&ox4, pt medicated per Dec am meds and PRN tylenol for h/a, per pt took own dilatin that his brought in. resting quietly, pending bed assignment.
--- NOTE | 2023-10-30 13:19 | MHC.CM.PN ---
Atttempted to meet with patient in regards to discharge planning. Nursing care currently being provided. Will attempt to meet again. Continue to monitor for d/c needs.
--- NOTE | 2023-10-30 13:50 | PM.CNPUL ---
History of Present Illness History of Present Illness Consult date: 10/30/23 Chief complaint: Acute respiratory failure, COVID-19 infection Narrative: 63-year-old gentleman recent 40+ pack-year smoker, quit 2020, with prior COVID in August of 2021, previously on supplemental oxygen, also underlying emphysema, admitted on 10/29/2023 with repeat COVID and acute hypoxic respiratory failure. Treated with systemic glucocorticoids, remdesivir, and empiric antibiotics. Slowly improving. Review of Systems Constitutional: Constitutional: Denies daytime sleepiness, Denies excessive sweating, Denies fatigue, Denies fever(s), Denies lethargy, Denies malaise, Denies night sweats, Denies snoring and Denies weight loss Eyes: Eyes: Denies blurry vision and Denies itchy eyes ENT: Denies nasal congestion, Denies post nasal drip, Denies sinus pain, Denies sinus pressure and Denies other ( Thrush) Cardiovascular: Cardiovascular: Denies chest pain, Denies pedal edema, Denies dyspnea, Reports dyspnea on exertion, Denies orthopnea and Denies paroxysmal nocturnal dyspnea Respiratory: Respiratory: Denies cough, Denies hemoptysis, Denies excessive phlegm production, Denies dyspnea, Reports dyspnea on exertion, Denies snoring and Denies wheezing Gastrointestinal: Gastrointestinal: Denies abdominal pain and Denies heartburn Musculoskeletal: Musculoskeletal: Denies myalgias, Denies arthralgias and Denies joint swelling Integumentary/Breasts: Skin/Breast: Denies rash Neurologic: Denies memory loss and Denies seizure-like activity Psychiatric: Psychiatric: Denies abnormal sleep pattern, Denies anxiety and Denies memory loss Endocrine: Endocrine: Denies excessive sweating, Denies fatigue and Denies heat intolerance Hematologic/Lymphatic: Hematologic/Lymphatic: Denies easy bruising Allergic/Immunologic: Allergic/Immunologic: Denies itchy eyes, Denies seasonal rhinorrhea and Denies wheezing PMFSH Past Medical History Medical History (Updated 10/29/23 @ 13:45 by Rupa Carbajal MD) Seizure disorder COPD (chronic obstructive pulmonary disease) Social History Social History Patient Tobacco Use Status: Former Tobacco user Smoked in Last 30 Days: No Use of substances other than those prescribed or required for medical reasons: No Advance Directives: No Advance Directives Information Provided: No Nutrition Risks: No Nutritional Risk Meds Allergies Allergy/AdvReac Type Severity Reaction Status Date / Time No Known Allergies Allergy Verified 10/29/23 09:15 [No Known Allergies*] Active Medications: Current Medications Acetaminophen (Acetaminophen 325 Mg Tablet) 650 mg PO Q6H PRN PRN Reason: Fever, pain Last Admin: 10/30/23 12:53 Dose: 650 mg Albuterol Sulfate (Albuterol Sulfate 90 Mcg 8 Gm Inhaler) 4 puff INHALE RQ4H WHILE AWAKE [facility] Last Admin: 10/30/23 11:21 Dose: 4 puff Dexamethasone Sodium Phosphate (Dexamethasone Sod Phosphate 4 Mg/Ml Vial) 6 mg IVPUSH DAILY [facility] Last Admin: 10/30/23 12:27 Dose: 6 mg Enoxaparin Sodium (Enoxaparin Sodium 40 Mg/0.4 Ml Syringe) 40 mg SUBCUT Q24H [facility] Last Admin: 10/30/23 12:27 Dose: 40 mg Guaifenesin/Dextromethorphan (Guaifenesin Dm 200/20/10 Ml 10 Ml Syrup) 10 ml PO QID [facility] Last Admin: 10/30/23 12:28 Dose: 10 ml Remdesivir 100 mg/ Sodium (Chloride) 230 mls @ 115 mls/hr IV Q24H [facility] Stop: 11/02/23 16:59 Azithromycin 500 mg/ Sodium (Chloride) 250 mls @ 125 mls/hr IV Q24H [facility] Last Admin: 10/30/23 12:27 Dose: 125 mls/hr Phenytoin (Phenytoin Chewable 50 Mg Tab.Chew) 50 mg PO DAILY [facility] Last Admin: 10/30/23 12:22 Dose: Not Given Phenytoin Sodium (Phenytoin Sodium Extended 100 Mg Capsule) 500 mg PO DAILY [facility] Last Admin: 10/30/23 12:22 Dose: Not Given Sodium Chloride (0.9 % Sodium Chloride Flush 3 Ml Syringe) 3 ml IVFLUSH QSHIFT [facility] Last Admin: 10/30/23 12:26 Dose: 3 ml Home Medications Medication Instructions Recorded Confirmed Last Taken Type phenytoin 50 mg chewable tablet 50 mg PO [facility] 10/29/23 10/29/23 10/29/23 History phenytoin sodium extended 100 mg 500 mg PO [facility] 10/29/23 10/29/23 10/29/23 History capsule Physical Exam Vital Signs: Vital Signs: Last Vital Signs Temp 98.1 F 10/29/23 18:24 Pulse 79 10/30/23 11:23 Resp 20 10/30/23 11:23 BP 100/51 L 10/29/23 18:24 Pulse Ox 94 10/29/23 18:24 O2 Del Method Nasal Cannula 10/29/23 18:24 O2 Flow Rate 4 10/29/23 18:24 BMI result Body Mass Index 25.8 Const: General: no acute distress and alert Nutritional Appearance: not obese Orientation/consciousness: Other orientation findings ( oriented) HEENT: Head: Yes atraumatic Eyes: General: appearance normal, both eyes and all related structures Sclerae: sclerae normal EOM: EOMs intact bilaterally Neck: Neck: Yes supple Lymphatic: no lymphadenopathy noted Resp: Effort & Inspection: normal respiratory effort and no use of accessory muscles Auscultation: wheezes expiratory wheezes (Mild bilateral) Cardio: Rate: regular rate Rhythm: regular rhythm Heart sounds: no gallops, no murmurs and no rubs Skin: General skin exam: other ( warm) Extrem: General: No clubbing, No cyanosis and Yes edema (1+ bilateral) Results Laboratory Findings 10/30/23 05:53 10/30/23 05:53 Abnormal lab findings: Abnormal Labs 10/29/23 10/29/23 10/30/23 09:30 09:31 05:53 MPV 9.3 L Lymph % (Auto) 6.7 L 13.2 L [place] % (Auto) 16.7 H 21.3 H Eos % (Auto) 5.1 H Lymph # (Auto) 0.6 L 1.1 L [place] # (Auto) 1.4 H 1.8 H Anion Gap 10 L SARS-CoV-2 RNA (RT-PCR) POSITIVE A Assessment and Plan (1) COVID-19: Status: Acute (2) COPD (chronic obstructive pulmonary disease): Qualifiers: COPD type: COPD with acute exacerbation Qualified Code(s): J44.1 - Chronic obstructive pulmonary disease with (acute) exacerbation Status: Acute (3) Hypoxic respiratory failure: Status: Acute Plan Impression: 63-year-old gentleman with underlying COPD now admitted with acute hypoxic respiratory failure secondary to COVID-19, improving slowly. Recommendations: Agree with current treatment course with dexamethasone, remdesivir, and empiric antibiotics to cover possible secondary pneumonia. Procedures Date of Service Date of Service: 10/30/23
--- NOTE | 2023-10-30 14:06 | HO.PM.IMPN ---
Subjective Subjective Date of Service: 10/30/23 Interval History: f/u on acute hypxoc resp failure d/t covid 19, copd exacerbation, and possible PNA Interval history, he feels better Physical Exam Vital Signs: Vital Signs: Last Vital Signs Temp 98.1 F 10/29/23 18:24 Pulse 79 10/30/23 11:23 Resp 20 10/30/23 11:23 BP 100/51 L 10/29/23 18:24 Pulse Ox 94 10/29/23 18:24 O2 Del Method Nasal Cannula 10/29/23 18:24 O2 Flow Rate 4 10/29/23 18:24 BMI result Body Mass Index 25.8 Const: Other: General: AO X 3, no acute distress Resp: CTA bilateral CVS: S1,S2,RRR GI: +BS, NT, no distention Skin: No rash Neuro: motor grossly intact Psych: appropriate affect Objective Data Active Medications Acetaminophen (Acetaminophen 325 Mg Tablet) 650 mg PO Q6H PRN PRN Reason: Fever, pain Last Admin: 10/30/23 12:53 Dose: 650 mg Documented By: MIAH Albuterol Sulfate (Albuterol Sulfate 90 Mcg 8 Gm Inhaler) 4 puff INHALE RQ4H WHILE AWAKE [facility] Last Admin: 10/30/23 11:21 Dose: 4 puff Documented By: YARON Dexamethasone Sodium Phosphate (Dexamethasone Sod Phosphate 4 Mg/Ml Vial) 6 mg IVPUSH DAILY [facility] Last Admin: 10/30/23 12:27 Dose: 6 mg Documented By: MIAH Enoxaparin Sodium (Enoxaparin Sodium 40 Mg/0.4 Ml Syringe) 40 mg SUBCUT Q24H [facility] Last Admin: 10/30/23 12:27 Dose: 40 mg Documented By: MIAH Guaifenesin/Dextromethorphan (Guaifenesin Dm 200/20/10 Ml 10 Ml Syrup) 10 ml PO QID [facility] Last Admin: 10/30/23 12:28 Dose: 10 ml Documented By: MIAH Remdesivir 100 mg/ Sodium (Chloride) 230 mls @ 115 mls/hr IV Q24H [facility] Stop: 11/02/23 16:59 Azithromycin 500 mg/ Sodium (Chloride) 250 mls @ 125 mls/hr IV Q24H [facility] Last Admin: 10/30/23 12:27 Dose: 125 mls/hr Documented By: MIAH Phenytoin (Phenytoin Chewable 50 Mg Tab.Chew) 50 mg PO DAILY [facility] Last Admin: 10/30/23 12:22 Dose: Not Given Documented By: MIAH Non-Admin Reason: pt took home meds Phenytoin Sodium (Phenytoin Sodium Extended 100 Mg Capsule) 500 mg PO DAILY [facility] Last Admin: 10/30/23 12:22 Dose: Not Given Documented By: MIAH Non-Admin Reason: pt took home meds Sodium Chloride (0.9 % Sodium Chloride Flush 3 Ml Syringe) 3 ml IVFLUSH QSHIFT [facility] Last Admin: 10/30/23 12:26 Dose: 3 ml Documented By: MIAH Labs 10/30/23 05:53 10/30/23 05:53 Labs: Laboratory Results - last 24 hr 10/30/23 05:53 MCV 90.4 MCH 29.9 MCHC 33.1 RDW 13.8 Plt Count 209 MPV 9.9 Immature Gran % (Auto) 0.4 Neut % (Auto) 61.4 Lymph % (Auto) 13.2 L [place] % (Auto) 21.3 H Eos % (Auto) 3.0 Baso % (Auto) 0.7 Lymph # (Auto) 1.1 L [place] # (Auto) 1.8 H Eos # (Auto) 0.3 Baso # (Auto) 0.1 Abs Immat Gran (auto) 0.03 Absolute Neuts (auto) 5.0 Absolute Nucleated RBC 0.000 Nucleated RBC % (auto) 0.0 Smear Tech's Comments VERIFIED Anion Gap 12 Estim Creat Clear Calc 76.2 Estimated GFR > 60 Random Glucose 87 Calcium 9.5 Total Bilirubin 0.3 AST 24 ALT 13 Alkaline Phosphatase 87 Total Protein 7.1 Albumin 4.0 Assessment and Plan (1) Hypoxic respiratory failure: Status: Acute (2) COPD (chronic obstructive pulmonary disease): Status: Acute (3) COVID-19: Status: Acute Plan 63/m w/ seizure d/o, former smoker quit 3 months ago admitted d/t 1. Acute Hypoxic respiratory failure secondary to COVID-19 infection associated with acute COPD exacerbation. -remains hypoxic on supplemental O2, but improving, wean as betty -Decadron and remdesevir for covid -Bronchodilator for copd exacerbation -Azithromycin for possible PNA 2. Seizure disorder. Continue phenytoin 550 mg PO daily -->100 mg (5 tabs) + 50 mg (1 tab). VTE prophylaxis: Lovenox. Need for inpt: acute resp failure d/t covid, needing IV remdsevir, iv steroid and close monitoring of resp status Quality Stroke Does the patient have a stroke diagnosis?: No VTE Prior VTE?: No VTE Risk Level:: Medical - moderate - high VTE Device Contraindication: Treatment Not Indicated VTE Drug Contraindication: N/A - Med Ordered
[2023-10-30 15:18] VITALS: PULSE 100; RESP 18; O2SAT 90
--- NOTE | 2023-10-30 16:17 | PC.NURSE ---
pt medicated per MAR, resting quietly, eyes closed, pt pending bed assignment.
[2023-10-30 16:49] VITALS: BP 132/77; PULSE 100; TEMP 36.9; O2SAT 90
[2023-10-30 19:59] VITALS: PULSE 104; RESP 18; O2SAT 94
[2023-10-30 20:36] VITALS: BP 98/50; PULSE 106; RESP 14; TEMP 36.7; O2SAT 93
[2023-10-31] VITALS (11 sets, daily range): BP systolic 102–133; BP diastolic 55–69; PULSE 88–106; RESP 16–20; TEMP 36.6–37.1; O2SAT 90–94; BMI 25.4
--- NOTE | 2023-10-31 10:45 | MHC.CM.PN ---
Pt lives with his , he is independent, does not have home health services or med equip. He did have supplemental O2 at home from [facility] after his previous hosp. stay from [facility]. His will transport him home upon DC. HCP form completed here. PCP: Radha Sanford. CM to follow and assist with DC plan.
--- NOTE | 2023-10-31 12:54 | HO.PM.IMPN ---
Subjective Subjective Date of Service: 10/31/23 Interval History: feel pretty goo , but O2 drops to 87 on room air Physical Exam Vital Signs: Vital Signs: Last Vital Signs Temp 98.6 F 10/31/23 08:00 Pulse 97 10/31/23 11:31 Resp 20 10/31/23 11:31 BP 108/55 L 10/31/23 08:00 Pulse Ox 90 L 10/31/23 08:00 O2 Del Method Nasal Cannula 10/31/23 08:00 O2 Flow Rate 1 10/31/23 08:00 BMI result Body Mass Index 25.4 Const: Other: General: AO X 3, no acute distress Resp: CTA bilateral CVS: S1,S2,RRR GI: +BS, NT, no distention Skin: No rash Neuro: motor grossly intact Psych: appropriate affect Objective Data Active Medications Acetaminophen (Acetaminophen 325 Mg Tablet) 650 mg PO Q6H PRN PRN Reason: Fever, pain Last Admin: 10/31/23 10:07 Dose: 650 mg Documented By: JUAN Albuterol Sulfate (Albuterol Sulfate 90 Mcg 8 Gm Inhaler) 4 puff INHALE RQ4H WHILE AWAKE [facility] Last Admin: 10/31/23 11:28 Dose: 4 puff Documented By: MISSY Dexamethasone Sodium Phosphate (Dexamethasone Sod Phosphate 4 Mg/Ml Vial) 6 mg IVPUSH DAILY [facility] Last Admin: 10/31/23 10:10 Dose: 6 mg Documented By: JUAN Enoxaparin Sodium (Enoxaparin Sodium 40 Mg/0.4 Ml Syringe) 40 mg SUBCUT Q24H [facility] Last Admin: 10/31/23 10:10 Dose: Not Given Documented By: JUAN Non-Admin Reason: Patient Refused Guaifenesin/Dextromethorphan (Guaifenesin Dm 200/20/10 Ml 10 Ml Syrup) 10 ml PO QID [facility] Last Admin: 10/31/23 10:08 Dose: 10 ml Documented By: JUAN Remdesivir 100 mg/ Sodium (Chloride) 230 mls @ 115 mls/hr IV Q24H [facility] Stop: 11/02/23 16:59 Last Infusion: 10/30/23 18:31 Dose: Infused Documented By: MADDENL Azithromycin 500 mg/ Sodium (Chloride) 250 mls @ 125 mls/hr IV Q24H [facility] Last Infusion: 10/30/23 15:14 Dose: Infused Documented By: MIAH Phenytoin (Phenytoin Chewable 50 Mg Tab.Chew) 50 mg PO DAILY [facility] Last Admin: 10/31/23 10:09 Dose: Not Given Documented By: JUAN Non-Admin Reason: pt previously took med Phenytoin Sodium (Phenytoin Sodium Extended 100 Mg Capsule) 500 mg PO DAILY [facility] Last Admin: 10/31/23 10:09 Dose: Not Given Documented By: JUAN Non-Admin Reason: pt previously took med Sodium Chloride (0.9 % Sodium Chloride Flush 3 Ml Syringe) 3 ml IVFLUSH QSHIFT [facility] Last Admin: 10/31/23 10:07 Dose: 3 ml Documented By: JUAN Labs 10/30/23 05:53 10/30/23 05:53 Assessment and Plan (1) Hypoxic respiratory failure: Status: Acute (2) COPD (chronic obstructive pulmonary disease): Status: Acute (3) COVID-19: Status: Acute Plan 63/m w/ seizure d/o, former smoker quit 3 months ago admitted d/t 1. Acute Hypoxic respiratory failure secondary to COVID-19 infection associated with acute COPD exacerbation. -feeling pretty good but O2 is 87 on room air - on supplemental O2, but improving, wean as betty -Decadron and remdesevir for covid -Bronchodilator for copd exacerbation -Azithromycin for possible PNA 2. Seizure disorder. Continue phenytoin 550 mg PO daily -->100 mg (5 tabs) + 50 mg (1 tab). VTE prophylaxis: Lovenox. Need for inpt: acute resp failure d/t covid, needing IV remdsevir, iv steroid and close monitoring of resp status Quality Stroke Does the patient have a stroke diagnosis?: No VTE Prior VTE?: No VTE Risk Level:: Medical - moderate - high VTE Device Contraindication: Treatment Not Indicated VTE Drug Contraindication: N/A - Med Ordered
[2023-11-01] VITALS (10 sets, daily range): BP systolic 106–130; BP diastolic 57–88; PULSE 81–115; RESP 18–20; TEMP 36.3–36.7; O2SAT 87–97
[2023-11-02 03:49] VITALS: BP 109/71; PULSE 101; RESP 20; TEMP 36.7; O2SAT 95
[2023-11-02 04:01] VITALS: BP 127/61; PULSE 63; RESP 20; TEMP 36.1; O2SAT 95
[2023-11-02 07:44] VITALS: PULSE 78; RESP 18; O2SAT 100
[2023-11-02 07:50] VITALS: BP 114/75; PULSE 86; RESP 18; TEMP 36.6; O2SAT 93
[2023-11-02 11:21] VITALS: PULSE 109; RESP 20; O2SAT 91
--- NOTE | 2023-11-02 11:34 | PM.PNPUL ---
Subjective Subjective Date of Service: 11/02/23 Principal diagnosis: Acute hypoxic respiratory failure secondary to COVID-19 Interval history: 63-year-old gentleman recent 40+ pack-year smoker, quit 2020, with prior COVID in August of 2021, previously on supplemental oxygen, also underlying emphysema, admitted on 10/29/2023 with repeat COVID and acute hypoxic respiratory failure. Treated with systemic glucocorticoids, remdesivir, and empiric antibiotics. Improved, but does require supplemental oxygen at 2 L continuous flow at this time. Objective Data Labs 10/30/23 05:53 10/30/23 05:53 Review of Systems Cardiovascular: Denies dyspnea, Reports dyspnea on exertion and Denies orthopnea Respiratory: Denies cough, Denies excessive phlegm production, Denies dyspnea, Reports dyspnea on exertion and Denies wheezing Allergic/Immunologic: Denies wheezing Physical Exam Vital Signs: Vital Signs: Last Vital Signs Temp 97.9 F 11/02/23 07:50 Pulse 109 H 11/02/23 11:21 Resp 20 11/02/23 11:21 BP 114/75 11/02/23 07:50 Pulse Ox 93 11/02/23 07:50 O2 Del Method Nasal Cannula 11/02/23 07:50 O2 Flow Rate 2 11/02/23 07:50 BMI result Body Mass Index 25.4 Const: General: no acute distress, alert and awake Eyes: Sclerae: sclerae normal EOM: EOMs intact bilaterally Neck: Neck: Yes no lymphadenopathy, Yes trachea midline and Yes supple Resp: Effort & Inspection: normal respiratory effort and no respiratory distress Auscultation: clear to auscultation bilaterally Cardio: Rate: tachycardic Rhythm: regular rhythm Heart sounds: no gallops, no murmurs and no rubs GI: Palpation (GI): Soft to palpation and Other GI palpation findings present ( Nontender) Auscultation: normal bowel sounds Extrem: General: Yes no pedal edema, No clubbing and No cyanosis Procedures Date of Service Date of Service: 11/02/23 Assessment and Plan Assessment and plan (1) Hypoxic respiratory failure: Status: Acute (2) COPD (chronic obstructive pulmonary disease): Status: Acute (3) COVID-19: Status: Acute Plan Impression: 63-year-old gentleman with underlying COPD now admitted with acute hypoxic respiratory failure secondary to COVID-19, improving slowly. Recommendations: Agree with systemic glucocorticoids taper and discharged on supplemental oxygen. Patient to follow-up with Pulmonary office within 1-2 weeks after discharge. Time Spent With Patient Time: Total time managing care of this patient today ____ minutes. Progress Note: Quality Stroke Does the patient have a stroke diagnosis?: No
--- NOTE | 2023-11-02 12:04 | P.DS_ITS ---
DS: Providers Provider Date of Service: 11/02/23 Date of admission: 10/29/23 12:56 Primary care physician: Radha Sanford NP Consults: 10/29/23 13:01 Consult to Pulmonology Routine Consulting Provider: [facility] Reason for consultation: Hypoxic respiratory failure, COVID-19 infection DS: Diagnosis Discharge Diagnosis (1) Hypoxic respiratory failure: Status: Acute (2) COPD (chronic obstructive pulmonary disease): Status: Acute (3) COVID-19: Status: Acute DS: Summary Hospital Course Hospital Course: Admiison HPI] Chief Complaint: Fever and shortness of breath. Denny Mckeon is a very pleasant 63 years old man past medical history significant for chronic obstructive pulmonary disease -not home O2 use and seizure disorder presents to the emergency department complaining of fever associated with general body aches, headache and generalized weakness over the last few days, however, he has been feeling unwell over the last few months. He also complains shortness of breadth and productive cough of yellowish sputum. 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 He denied any chest pain, palpitations, dizziness or loss of consciousness. He denies any gastrointestinal or genitourinary smptoms. He is a former Tobacco smoker, quit several months ago. He denied alcohol abuse or illicit drug use. He does not use inhalers at home. In the ED, he was found to mild tachycardia, oxygen saturation 87-88% (with ambulation) and temperature 100.1 degrees. Blood workup is remarkable for monocytosis and lymphopenia. He has no electrolyte imbalances and LFTs are normal. Procalcitonin is normal. CXR showed finding consistent with COPD; it also showed several compression fractures deformities (probably old). ED tx: Albuterol neb X1, Solu-Medrol 125 mg IV, azithromycin 500 mg IV, ceftriaxone 1 g IV. Hospital course: Patient was admitted and treated for acute hypoxic respiratory failure due to covid 19 and treated with remdesevir x 5 days, IV dexamethasone and oxygen and overall has made good recovery and but still in need of oxygen probably from underlying chronic lung disease from years of smoking and as such he will be discharged with home oxygen for short term. Will be discharged with 3 more days of Decadron Time Attestation Discharge coordination time: Greater than 30 minutes Quality: Safe Use of Opioids Does Pt have an Active Cancer Diagnosis on the Problem List?: No Quality: Stroke Does the patient have a stroke diagnosis?: No Physical Exam Vital Signs: Vital Signs: Last Vital Signs Temp 97.9 F 11/02/23 07:50 Pulse 109 H 11/02/23 11:21 Resp 20 11/02/23 11:21 BP 114/75 11/02/23 07:50 Pulse Ox 93 11/02/23 07:50 O2 Del Method Nasal Cannula 11/02/23 07:50 O2 Flow Rate 2 11/02/23 07:50 BMI result Body Mass Index 25.4 Discharge Plan Discharge Anticipated Discharge Date/Time: 11/02/23 11:59 Patient Disposition: Home, Self-Care Discharge Diagnosis: Acute hypoxic resp failure due to covid Referrals: Radha Sanford NP [Primary Care Provider] - 1 Week Discharge Medications: New dexamethasone 6 mg tablet 6 mg PO DAILY Qty: 3 0RF Continued phenytoin sodium extended 100 mg capsule 500 mg PO QAM phenytoin 50 mg tablet,chewable 50 mg PO QAM Discharge Orders: Discharge Order (Routine); Ordered 11/02/23 Ordered By: Collin Pavon Diet: Advance to usual diet Activity on Discharge: As tolerated Stand Alone Forms: Patient Portal Discharge page Care Plan Goals: Full recovery from covid Health Concerns: covid Plan of Treatment: take Dexamethasone as directed and follow up with your Doctor in a week Assessment: As above
--- NOTE | 2023-11-02 13:23 | MHC.CM.PN ---
Pt is medically cleared for D/C home self-care, pts to transport him home.
== END 2023-11-02 15:30 | disposition home or self-care (01) | DRG 137 ==
LOC: HO.ED 10:45 → HO.EDOVER 13:13 → HO.IMC 10-31 02:15
PROVIDERS: Admitting Provider Internal Medicine; Emergency Provider Emergency Medicine; PCP Nurse Practitioner Family; Visit Provider Internal Medicine
DX: U07.1 COVID-19 (principal); J96.01 Acute respiratory failure with hypoxia; G40.909 Epilepsy, unspecified, not intractable, without status epilepticus; J18.9 Pneumonia, unspecified organism; J43.9 Emphysema, unspecified; Z79.51 Long term (current) use of inhaled steroids; Z79.899 Other long term (current) drug therapy
CPT/HCPCS: 0241U; 36415; 71046; 80048; 80053; 80076; 83690; 84145; 85025; 94640; 99285; J0248; J0456; J0696; J1100; J1650; J2930

== ENCOUNTER → 2023-10-29 12:56 | Outpatient (BNV) | payer OTHER, SELFPAY | PROVIDERS: Admitting Provider Internal Medicine; Emergency Provider Emergency Medicine; PCP Nurse Practitioner Family; Visit Provider Internal Medicine Pulmonary Disease | DX: J96.91 Respiratory failure, unspecified with hypoxia (principal); J44.1 Chronic obstructive pulmonary disease with (acute) exacerbation; U07.1 COVID-19 | CPT/HCPCS: 99222; 99231 ==

== ENCOUNTER → 2023-10-29 12:56 | Outpatient (BNV) | payer OTHER, SELFPAY | PROVIDERS: Admitting Provider Internal Medicine; Emergency Provider Emergency Medicine; PCP Nurse Practitioner Family; Visit Provider Internal Medicine | DX: U07.1 COVID-19 (principal); J44.1 Chronic obstructive pulmonary disease with (acute) exacerbation; J96.01 Acute respiratory failure with hypoxia | CPT/HCPCS: 99223; 99232; 99233; 99239 ==

== ENCOUNTER 2023-11-04 09:16 | Outpatient (AMB) | payer OTHER, SELFPAY ==
--- NOTE | 2023-11-04 09:18 | MHC.OFFVIS ---
Intake Vital Signs 11/04/23 09:20 Height 5 ft 4 in Weight 149 lb BMI 25.6 BP 146/80 H Blood Pressure Location Rt brachial Position Sitting Pulse 88 Pulse Source Pulse Oximeter Pulse Oximetry (%) 92 Oxygen Delivery Method Room Air Intake Visit Reasons: hosp d/c f/u acute respiratory failure Vendor Management Specialist Required: No Accompanied by: Spouse Allergies No Known Allergies [No Known Allergies*] Allergy (Verified 11/04/23 09:28) Medication List - Last Reconciled 11/04/23 by Juliet Morgan LPN dexamethasone 6 mg PO DAILY phenytoin 50 mg PO QAM phenytoin sodium extended 500 mg PO QAM HPI hosp d/c f/u acute respiratory failure HPI Details Denny is a pleasant 63 year old male recent 40+ pack-year smoker, quit 2020, with underlying COPD, pulmonary nodules and previously on supplemental oxygen with prior COVID in August of 2021. At baseline respiratory symptoms are suboptimally controlled with reported dyspnea on exertion. Today he presents for a hospital follow up. He was admitted on 10/29/2023 with repeat COVID and acute hypoxic respiratory failure. He was treated with systemic glucocorticoids, remdesivir, empiric antibiotics with significant improvement, ultimately discharged on 2L continuous supplemental oxygen. He is not using his supplemental oxygen today but does report using it at home. He has been checking his oxygen saturation which ranges from 87-90% at home. At this time he denies cough, wheezing or chest tightness. He has been using combivent upwards of 3 times per day with good effect. [facility] Medical History (Updated 10/29/23 @ 13:45 by Rupa Carbajal MD) Seizure disorder COPD (chronic obstructive pulmonary disease) Social History (Updated 11/04/23 @ 09:31 by Juliet Morgan LPN) Household Members: Spouse Housing: House Do you presently have visiting nurse or other home services: No Patient Tobacco Use Status: Former Tobacco user Tobacco use type: Cigarette Cigarette Packs Per Day: 1 Years Smoked: 50 Second Hand Smoke Exposure: No service: No Review of Systems Const Denies chills, Denies excessive sweating, Denies fever(s), Denies headache(s) and Denies night sweats Eyes Denies dry eyes, Denies irritation and Denies itchy eyes ENT Reports Normal hearing present, Denies headache(s), Denies nasal congestion, Denies nasal discharge, Denies post nasal drip and Denies sore throat Card Denies chest pain, Denies chest pain at rest, Denies chest pain with activity, Denies claudication, Denies leg edema, Denies dyspnea, Denies dyspnea on exertion, Denies orthopnea and Denies paroxysmal nocturnal dyspnea Resp Denies chest congestion, Denies cough, Denies excessive phlegm production, Denies pain on inspiration, Denies pain with cough, Denies dyspnea, Denies dyspnea on exertion, Denies stridor and Denies wheezing Musc Denies myalgias Neuro Reports Normal hearing present and Denies headache(s) Endo Denies excessive sweating Mc/Lymph Denies lymphadenopathy Aller/Immun Denies itchy eyes, Denies seasonal rhinorrhea and Denies wheezing Physical Exam Vital Signs: Last Vital Signs Pulse 88 11/04/23 09:20 BP 146/80 H 11/04/23 09:20 Pulse Ox 92 11/04/23 09:20 Oxygen Delivery Method Room Air 11/04/23 09:20 BMI result Body Mass Index 25.6 Const General: cooperative, healthy appearing, comfortable, no acute distress, well developed and alert Orientation/consciousness: patient oriented x3 Limitations: no limitations HEENT Head: Yes normal to inspection, Yes normocephalic and Yes atraumatic Ears: hearing grossly normal bilaterally and external ears normal Eyes General: appearance normal, both eyes and all related structures Eyelids: Yes eyelids normal Sclerae: sclerae normal EOM: EOMs intact bilaterally Neck Neck: Yes normal visual inspection and Yes no lymphadenopathy Lymphatic: no lymphadenopathy noted Chest Chest palpation & inspection: normal inspection of the chest Resp Effort & Inspection: normal respiratory effort, able to speak in complete sentences, no audible wheezes, no cough, no stridor, not tachypneic, no tripod positioning and no use of accessory muscles Auscultation: clear to auscultation bilaterally Cardio Jugular venous distension: no JVD Rate: regular rate Rhythm: regular rhythm Skin Other: warm, dry General skin exam: no rashes or lesions noted Neuro General: patient oriented x3 Cranial nerves: Yes Normal hearing present Cognition (Neuro): normal cognition Gait exam (Neuro): Normal gait present Extrem General: Yes no pedal edema and Yes clubbing Psych Appearance: grossly normal and well kempt Speech and movement: Normal speech and movement present and Clear speech present Affect: normal affect Attitude: cooperative Thought process: Normal thought process present Thought content: Normal thought content present Insight: Good insight present (Psych) Judgement: Good judgement present (Psych) Office Procedures 6 Minute Walk Time:: 10:14 SPO2 % at rest: 92 Pulse at rest: 89 SPO2 % during excercise: 86 Pulse during excercise: 108 SPO2 % after excercise: 92 Pulse after excercise: 108 Distance in yards walked: 150 Ilana Score: 5 Performance Observations:: Patient walked unassisted on level ground. After approx 75 yards O2 saturation dropped to 86% Pulse 108. Stopped to rest and O2 applied at 2L. After approx 2 minutes O2 saturation increased to 91% Pulse 104. Resumed walk and was able to maintain O2 saturation at 91%. Patient will benefit from the use of supplemental O2 at 2L. Patient notes with walking up stairs or up an incline he gets very short of breath. He did not feel very short of breath with O2 sat at 86%. [id number] - 6 Minute Walk Results Reviewed Results Reviewed: [address] [address] XRay Report Signed Patient: Denny Gtz Jr MR#: [id number] : 1960 Acct:[id number] Age/Sex: 63 / M ADM Date: 10/29/23 Loc: .ED Attending Dr: Ordering Physician: Generic ED Physician Date of Service: 10/29/23 Procedure(s): XR chest 2V Accession Number(s): [id number] cc: Radha Sanford HOMEBIRTH MIDWIFE; Generic ED Physician~ EXAMINATION: XR CHEST 2 VIEW CLINICAL INFORMATION: Cough COMPARISON: CT of 01/15/2023 and chest x-ray of 08/08/2023 TECHNIQUE: PA and lateral views of the chest obtained. FINDINGS: The lungs are hyperinflated with lucency in the upper lung zones and retrosternal airspace consistent with COPD. There are no pleural effusions. The cardiomediastinal silhouette is stable. Upper and lower thoracic compression fracture deformity is unchanged. XR/XR chest 2V IMPRESSION: 1. COPD. 2. Several thoracic compression fracture deformities, age indeterminate but probably unchanged since 08/08/2023. Dictated By: Monroe Dong MD Signed By: <Electronically signed by Monroe Dong MD in OV> 10/29/2345 DD/ 9 TD/TT: Assistant Chief Train Dispatcher: Assessment & Plan Assessment & Plan (1) COPD (chronic obstructive pulmonary disease): Code(s): J44.9 - Chronic obstructive pulmonary disease, unspecified (2) Pulmonary nodules: Code(s): R91.8 - Other nonspecific abnormal finding of lung field Plan Denny reports increasing dyspnea on exertion, prior to hospital admission. Will trial Trelegy, as he has been using combivent 3 times per day. Reviewed inhaler technique and importance of good oral hygiene. 6MWT performed and patient desaturated to 86% recovering with 2L supplemental oxygen. Advised patient to continue to use with any activity. Will follow up in 4-6 weeks to reassess need for supplemental oxygen. He is aware there is an order for a chest CT for December to assess pulmonary nodules. All questions were answered and patient is in agreement of plan. Orders: Orders AMB 6 minute walk Today J44.9 - Chronic obstructive pulmonary disease, unspecified, U09.9 - Post COVID-19 condition, unspecified Medications: New ihsmuqukyhq-iccpvglst-uykgqbjh 100-62.5-25 mcg (Trelegy Ellipta) 1 inh inhalation DAILY 60 ea 6RF Coding Level of Care Code Est Pt Level 4 (80034) Diagnoses COPD (chronic obstructive pulmonary disease) J44.9 Pulmonary nodules R91.8 CPT Codes Coding ([id number])
[2023-11-04 09:20] VITALS: BP 146/80; PULSE 88; O2SAT 92; BMI 25.6
[2023-11-04 11:00] VITALS: PULSE 89; O2SAT 92
== END 2023-11-04 10:50 | disposition home or self-care (01) ==
PROVIDERS: PCP Nurse Practitioner Family; Visit Provider Nurse Practitioner Family
DX: J44.9 Chronic obstructive pulmonary disease, unspecified (principal); R91.8 Other nonspecific abnormal finding of lung field
CPT/HCPCS: 94618; 99214

== ENCOUNTER → 2023-11-04 09:16 | Outpatient (BNVA) | payer OTHER, SELFPAY | PROVIDERS: PCP Nurse Practitioner Family; Visit Provider Nurse Practitioner Family | DX: J44.9 Chronic obstructive pulmonary disease, unspecified (principal); R91.8 Other nonspecific abnormal finding of lung field | CPT/HCPCS: 94618 ==

== ENCOUNTER 2023-12-03 15:47 | Outpatient (AMB) | payer OTHER, SELFPAY ==
[2023-12-03 15:52] VITALS: BP 114/66; PULSE 77; O2SAT 91; BMI 25.7
--- NOTE | 2023-12-03 15:52 | A.OFFVIS_ITS ---
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 Required: No Right Of Way Buyer: Right Of Way Buyer offered & declined Accompanied by: Self / Same As Patient Allergies No Known Allergies [No Known Allergies*] Allergy (Verified 12/03/23 15:57) Medication List - Last Reconciled 12/03/23 by Juliet Morgan LPN whhubqhnjgz-ridbunizi-qlackgek 100-62.5-25 mcg (Trelegy Ellipta) 1 inh inhalation DAILY phenytoin 50 mg PO QAM phenytoin sodium extended 500 mg PO QAM HPI 4 week f/u HPI Details Denny is a pleasant 63 year old male recent 40+ pack-year smoker, quit 2020, with underlying COPD, pulmonary nodules and previously on supplemental oxygen with prior COVID in August of 2021. He was again admitted on 10/29/2023 with repeat COVID and acute hypoxic respiratory failure. He was treated with systemic glucocorticoids, remdesivir, empiric antibiotics with significant improvement, ultimately discharged on 2L continuous supplemental oxygen. At the last visit, 6MWT performed and patient requires supplemental oxygen with exe rtion. He admits to not using at work, although does use while at home. He reports his oxygen saturation does decrease to 86% with exertion, but at baseline is 90-92%. He was started on Trelegy which he reports moderate improvement in dyspnea. He denies cough, wheezing or chest tightness. Of note, he was recently evaluated for right rib fracture. [facility] Medical History (Updated 11/10/23 @ 00:01 by Vazquez Drummond) Seizure disorder COPD (chronic obstructive pulmonary disease) Social History (Updated 12/03/23 @ 15:59 by Juliet Morgan LPN) Household Members: Spouse Housing: House Do you presently have visiting nurse or other home services: No Patient Tobacco Use Status: Former Tobacco user Tobacco use type: Cigarette Cigarette Packs Per Day: 1 Years Smoked: 50 Second Hand Smoke Exposure: No service: No Review of Systems Const Denies chills, Denies excessive sweating, Denies fever(s), Denies headache(s) and Denies night sweats Eyes Denies dry eyes, Denies irritation and Denies itchy eyes ENT Reports Normal hearing present, Denies headache(s), Denies nasal congestion, Denies nasal discharge, Denies post nasal drip and Denies sore throat Card Denies chest pain, Denies chest pain at rest, Denies chest pain with activity, Denies claudication, Denies leg edema, Denies orthopnea and Denies paroxysmal nocturnal dyspnea Resp Denies chest congestion, Denies cough, Denies excessive phlegm production, Denies pain on inspiration, Denies pain with cough, Denies stridor and Denies wheezing Musc Denies myalgias Neuro Reports Normal hearing present and Denies headache(s) Endo Denies excessive sweating Mc/Lymph Denies lymphadenopathy Aller/Immun Denies itchy eyes, Denies seasonal rhinorrhea and Denies wheezing Physical Exam Vital Signs: Last Vital Signs Pulse 77 12/03/23 15:52 BP 114/66 12/03/23 15:52 Pulse Ox 91 L 12/03/23 15:52 Oxygen Delivery Method Room Air 12/03/23 15:52 BMI result Body Mass Index 25.7 Const General: cooperative, healthy appearing, comfortable, no acute distress, well developed and alert Orientation/consciousness: patient oriented x3 Limitations: no limitations HEENT Head: Yes normal to inspection, Yes normocephalic and Yes atraumatic Ears: hearing grossly normal bilaterally and external ears normal Eyes General: appearance normal, both eyes and all related structures Eyelids: Yes eyelids normal Sclerae: sclerae normal EOM: EOMs intact bilaterally Neck Neck: Yes normal visual inspection and Yes no lymphadenopathy Lymphatic: no lymphadenopathy noted Chest Chest palpation & inspection: normal inspection of the chest Resp Effort & Inspection: normal respiratory effort, able to speak in complete sentences, no audible wheezes, no cough, no stridor, not tachypneic, no tripod positioning and no use of accessory muscles Auscultation: diminished lung sounds Cardio Jugular venous distension: no JVD Rate: regular rate Rhythm: regular rhythm Skin Other: warm, dry General skin exam: no rashes or lesions noted Neuro General: patient oriented x3 Cranial nerves: Yes Normal hearing present Cognition (Neuro): normal cognition Gait exam (Neuro): Normal gait present Extrem General: Yes no pedal edema and Yes clubbing Psych Appearance: grossly normal and well kempt Speech and movement: Normal speech and movement present and Clear speech present Affect: normal affect Attitude: cooperative Thought process: Normal thought process present Thought content: Normal thought content present Insight: Good insight present (Psych) Judgement: Good judgement present (Psych) Assessment & Plan Assessment & Plan (1) COPD (chronic obstructive pulmonary disease): Code(s): J44.9 - Chronic obstructive pulmonary disease, unspecified (2) Pulmonary nodules: Code(s): R91.8 - Other nonspecific abnormal finding of lung field Plan Denny reports increasing dyspnea on exertion, prior to recent hospital admission and has responded well to Trelegy. Advised to continue. Had long discussion regarding importance of supplemental oxygen use and adverse effects of hypoxia. He is aware to use oxygen with any exertion. He is aware there is an order for a chest CT for December to assess pulmonary nodules. This has not been scheduled yet, will have staff reach out to follow up on order. All questions were answered and patient is in agreement of plan. Will follow up after CT to review results. Medications: New ipratropium-albuterol 20-100 mcg/actuation (Combivent Respimat) 1 puff inhalation Q6H PRN 4 grams 1RF shortness of breath or wheezing Coding Level of Care Code Est Pt Level 4 (48351) Diagnoses COPD (chronic obstructive pulmonary disease) J44.9 Pulmonary nodules R91.8
== END 2023-12-03 16:27 | disposition home or self-care (01) ==
PROVIDERS: PCP Nurse Practitioner Family; Visit Provider Nurse Practitioner Family
DX: J44.9 Chronic obstructive pulmonary disease, unspecified (principal); R91.8 Other nonspecific abnormal finding of lung field
CPT/HCPCS: 99214

== ENCOUNTER → 2023-12-03 15:47 | Outpatient (BNVA) | payer OTHER, SELFPAY | PROVIDERS: PCP Nurse Practitioner Family; Visit Provider Nurse Practitioner Family ==

== ENCOUNTER 2024-01-28 07:07 | Outpatient (REF) | payer OTHER, SELFPAY ==
--- NOTE | ~2024-01-28 | CT_ITS ---
EXAMINATION: CT CHEST WITHOUT CONTRAST CLINICAL INFORMATION: Pulmonary nodules. COMPARISON: 01/15/2023 and 06/25/2022 TECHNIQUE: Multidetector volumetric CT imaging of the chest was done. Axial MIP volume rendering provided. Sagittal and coronal reformatted images were obtained. This CT examination was performed using dose optimization techniques as appropriate, variously including the following: *Automated exposure control *Adjustment of mA and/or kV according to patient size (this includes techniques or standardized protocols for targeted exams where dose is matched to indication/reason for exam; i.e. extremities or head) *Use of iterative reconstruction technique DLP: 117 mGy-cm FINDINGS: LUNGS: Moderate centrilobular emphysema. Mild bronchial wall thickening seen to a greater degree in the bilateral lower lobes likely reflects chronic small airways inflammation. 9 mm right middle lobe subpleural nodule (6:122) likely represents focal scarring similar to prior study. No new or enlarging pulmonary nodules. Central airways are patent. MEDIASTINUM: Imaged thyroid gland is unremarkable. Pretracheal lymph node measures 1.1 x 1.6 cm. Subcarinal lymph node measures 0.9 x 1.7 cm. Great vessels are of normal caliber. Heart size is normal. No pericardial effusion. CORONARY ARTERY CALCIFICATION: Severe. PLEURA: No pleural effusion. AXILLA: No axillary lymphadenopathy. UPPER ABDOMEN: No adrenal mass. OSSEOUS STRUCTURES: Moderate height loss of T6. Mild height loss of T9. Moderate height loss of T12. Healed right 10th and 11th rib fractures. CT/CT chest wo IV con IMPRESSION: Stable examination. No change in 9 mm subpleural nodular focus in the right middle lobe likely representing scarring.
== END 2024-01-28 07:08 | disposition home or self-care (01) ==
LOC: HO.CT 07:07
PROVIDERS: PCP Nurse Practitioner Family; Visit Provider Internal Medicine Pulmonary Disease
DX: R91.8 Other nonspecific abnormal finding of lung field (principal)
CPT/HCPCS: 71250

== ENCOUNTER 2024-03-10 11:55 | Outpatient (AMB) | payer OTHER, SELFPAY ==
--- NOTE | 2024-03-10 11:57 | MHC.OFFVIS ---
Vital Signs 03/10/24 11:58 Height 5 ft 4 in Weight 144 lb BMI 24.7 BP 102/54 L Blood Pressure Location Lt brachial Position Sitting Pulse 87 Intake Visit Reasons: Colonoscopy Screening Intake Note: Patient new consult for 1st pre colonoscopy screening Patient denies any GI issues. Lower In Supervisor Required: No Accompanied by: Self / Same As Patient Allergies No Known Allergies [No Known Allergies*] Allergy (Verified 03/10/24 11:56) Medication List - Last Reconciled 03/10/24 by Jessica Pulido PA-C albuterol sulfate 90 mcg/actuation inhalation jbssdciixhk-gnithxsae-hyqlmeln 100-62.5-25 mcg (Trelegy Ellipta) 1 inh inhalation DAILY ipratropium-albuterol 20-100 mcg/actuation (Combivent Respimat) 1 puff inhalation Q6H PRN phenytoin 50 mg PO QAM phenytoin sodium extended 500 mg PO QAM HPI Comments Details: 63-year-old male COPD referred for screening colonoscopy-SZ disorder well controlled- he had 2 sz recently after traveling and no sleep taking meds late- Has O2 at home if need- does not use- Sees pulmonary today- will get cleared for procedure- he has not had any issues He has no GI or general c/o He is retiring this year Normal bowel pattern good appetite PFSH Medical History (Updated 03/10/24 @ 12:46 by Jessica Pulido PA-C) Seizure disorder COPD (chronic obstructive pulmonary disease) Social History Household Members: Spouse Housing: House Do you presently have visiting nurse or other home services: No Patient Tobacco Use Status: Former Tobacco user Tobacco use type: Cigarette Cigarette Packs Per Day: 1 Years Smoked: 50 Second Hand Smoke Exposure: No service: No Review of Systems Const All systems reviewed & are unremarkable except as noted in HPI and below Card Denies chest pain and Reports dyspnea on exertion Resp Reports dyspnea on exertion GI Denies abdominal pain, Denies heartburn, Denies nausea and Denies vomiting Physical Exam Vital Signs: Last Vital Signs Pulse 87 03/10/24 11:58 BP 102/54 L 03/10/24 11:58 BMI result Body Mass Index 24.7 Pleasant Gent Const General: comfortable and no acute distress Orientation/consciousness: patient oriented x3 Limitations: no limitations Eyes Sclerae: sclerae normal Resp Effort & Inspection: normal respiratory effort and able to speak in complete sentences Auscultation: diminished lung sounds Cardio Rate: regular rate Rhythm: regular rhythm Heart sounds: S1 normal heart sound present and S2 normal heart sound present GI Palpation (GI): Soft to palpation and nontender Auscultation: normal bowel sounds Skin General skin exam: no rashes or lesions noted Neuro General: patient oriented x3 Extrem General: Yes full ROM Psych Appearance: well kempt Mental Status: mental status grossly normal Speech and movement: Normal speech and movement present and Clear speech present Affect: normal affect Attitude: cooperative Thought process: Normal thought process present Thought content: Normal thought content present Insight: Good insight present (Psych) Judgement: Good judgement present (Psych) Assessment & Plan Assessment & Plan (1) Encounter for screening colonoscopy: Comment: COPD, not using O2 at home, seizure disorder well-controlled until recent-lack of sleep taking medications due to traveling Will need to be cleared by Pulmonary Code(s): Z12.11 - Encounter for screening for malignant neoplasm of colon Category: Medical Plan: Screening colon-pulmonary clearance needed- COPD- MiraLax Gatorade Plan BMI: 24.7kg/m? Orders: Orders Colonoscopy - GI Use Only Today Z12.11 - Encounter for screening for malignant neoplasm of colon Medications: New polyethylene glycol 3350 (Miralax) Take as directed by mouth the day before your procedure. 238 grams PO ONCE 1 day PRN 238 grams 0RF laxative effect bisacodyl (Dulcolax (bisacodyl)) Day before procedure @ 12 noon Take 4 tablets by mouth followed by large glass of water 20 mg (4 x 5 mg) PO ONCE 1 day PRN 4 tabs 0RF colonoscopy prep Z12.11 - Encounter for screening for malignant neoplasm of colon Patient Instructions: Pleasant 63-year-old Gent referred for screening colonoscopy -pulmonary yodchdmgh-RJMX-cfts pulmonary today will get clearance Retiring in June needs to be done prior Discussed procedure, rare risks need for escorted due to anesthesia MiraLax Gatorade prep, reviewed literature give Encouraged to call questions or concerns Coding Level of Care Code New Pt Level 3 (05246) Diagnoses Encounter for screening colonoscopy Z12.11 Time Spent (min) 30
[2024-03-10 11:58] VITALS: BP 102/54; PULSE 87; BMI 24.7
== END 2024-03-10 13:27 | disposition home or self-care (01) ==
PROVIDERS: PCP Nurse Practitioner Family; Visit Provider Physician Assistant
DX: Z01.818 Encounter for other preprocedural examination (principal); Z12.11 Encounter for screening for malignant neoplasm of colon
CPT/HCPCS: S0285

== ENCOUNTER → 2024-03-10 11:55 | Outpatient (BNVA) | payer OTHER, SELFPAY | PROVIDERS: PCP Nurse Practitioner Family; Visit Provider Physician Assistant | DX: Z01.811 Encounter for preprocedural respiratory examination (principal); J44.9 Chronic obstructive pulmonary disease, unspecified; R91.8 Other nonspecific abnormal finding of lung field; Z91.199 Patient's noncompliance with other medical treatment and regimen due to unspecified reason; Z01.818 Encounter for other preprocedural examination; G40.909 Epilepsy, unspecified, not intractable, without status epilepticus | CPT/HCPCS: 94618 ==

== ENCOUNTER 2024-03-10 15:52 | Outpatient (AMB) | payer OTHER, SELFPAY ==
--- NOTE | 2024-03-10 15:53 | MHC.OFFVIS ---
Vital Signs 03/10/24 15:54 Height 5 ft 4 in Weight 146 lb 4 oz BMI 25.1 BP 110/58 L Blood Pressure Location Rt brachial Position Sitting Pulse 102 H Pulse Source Pulse Oximeter Pulse Oximetry (%) 88 L Oxygen Delivery Method Room Air Intake Visit Reasons: 3 month f/u Allergies No Known Allergies [No Known Allergies*] Allergy (Verified 03/10/24 15:58) HPI HPI 3 month f/u: Details: Denny is a pleasant 63 year old male former smoker with 40+ pack-year, quit 2020, with underlying COPD, pulmonary nodules and h/o acute respiratory failure with hypoxemia. At the last visit, 6MWT performed and patient was started on supplemental oxygen with exertion. Since then patient has admitted to infrequent use, reported his oxygen saturation does decrease to 83% with exertion, but at baseline is 88-89% on room air. He was started on Trelegy which he does not feel a notable change in symptoms. He denies dyspnea with exertion however notes fatiguing easily, and resting frequently. He denies cough, wheezing or chest tightness. He denies any urgent care visits or hospitalizations since the last visit. [facility] Medical History (Updated 03/12/24 @ 11:51 by Gardenia Rojas NP) Seizure disorder COPD (chronic obstructive pulmonary disease) Social History Household Members: Spouse Housing: House Do you presently have visiting nurse or other home services: No Patient Tobacco Use Status: Former Tobacco user Tobacco use type: Cigarette Cigarette Packs Per Day: 1 Years Smoked: 50 Second Hand Smoke Exposure: No service: No Review of Systems Const Denies chills, Denies excessive sweating, Denies fever(s), Denies headache(s) and Denies night sweats Eyes Denies dry eyes, Denies irritation and Denies itchy eyes ENT Reports Normal hearing present, Denies headache(s), Denies nasal congestion, Denies nasal discharge, Denies post nasal drip and Denies sore throat Card Denies chest pain, Denies chest pain at rest, Denies chest pain with activity, Denies claudication, Denies leg edema, Denies orthopnea and Denies paroxysmal nocturnal dyspnea Resp Denies chest congestion, Denies cough, Denies excessive phlegm production, Denies pain on inspiration, Denies pain with cough, Denies stridor and Denies wheezing Musc Denies myalgias Neuro Reports Normal hearing present and Denies headache(s) Endo Denies excessive sweating Mc/Lymph Denies lymphadenopathy Aller/Immun Denies itchy eyes, Denies seasonal rhinorrhea and Denies wheezing Physical Exam Vital Signs: Last Vital Signs Pulse 102 H 03/10/24 15:54 BP 110/58 L 03/10/24 15:54 Pulse Ox 88 L 03/10/24 15:54 Oxygen Delivery Method Room Air 03/10/24 15:54 BMI result Body Mass Index 25.1 Const General: cooperative, comfortable, no acute distress, well developed and alert Orientation/consciousness: patient oriented x3 Limitations: no limitations HEENT Head: Yes normal to inspection, Yes normocephalic and Yes atraumatic Ears: hearing grossly normal bilaterally and external ears normal Eyes General: appearance normal, both eyes and all related structures Eyelids: Yes eyelids normal Sclerae: sclerae normal EOM: EOMs intact bilaterally Neck Neck: Yes normal visual inspection and Yes no lymphadenopathy Lymphatic: no lymphadenopathy noted Chest Chest palpation & inspection: normal inspection of the chest Resp Effort & Inspection: normal respiratory effort, able to speak in complete sentences, no audible wheezes, no cough, no stridor, not tachypneic and no use of accessory muscles Auscultation: diminished lung sounds Cardio Jugular venous distension: no JVD Rate: regular rate Rhythm: regular rhythm Skin Other: warm, dry General skin exam: no rashes or lesions noted Neuro General: patient oriented x3 Cranial nerves: Yes Normal hearing present Cognition (Neuro): normal cognition Gait exam (Neuro): Normal gait present Extrem General: Yes no pedal edema and Yes clubbing Psych Appearance: grossly normal and well kempt Speech and movement: Normal speech and movement present and Clear speech present Affect: normal affect Attitude: cooperative Thought process: Normal thought process present Thought content: Normal thought content present Insight: Good insight present (Psych) Judgement: Good judgement present (Psych) Office Procedures 6 Minute Walk Time:: 16:20 SPO2 % at rest: 86 Pulse at rest: 94 SPO2 % during excercise: 89 Pulse during excercise: 98 SPO2 % after excercise: 94 Pulse after excercise: 95 Performance Observations:: Patient was sitting at rest without O2 with O2 saturation at 86-87 with pulse rate of 94. O2 applied at 2L with little effect O2 increased to 3L with O2 sat 89-90. Patient walked approx 10 yards and O2 saturation decreased to 88. Increased O2 to 4L and and O2 sat at rest recovered to 93-94%. Patient denies feeling shortness of breath. Patient required supplemental O2 both at rest and with minimal walking. 11751 - 6 Minute Walk Assessment & Plan Assessment & Plan (1) COPD (chronic obstructive pulmonary disease): Code(s): J44.9 - Chronic obstructive pulmonary disease, unspecified Category: Medical (2) Pulmonary nodules: Code(s): R91.8 - Other nonspecific abnormal finding of lung field Category: Medical (3) Encounter for preoperative pulmonary examination: Code(s): Z01.811 - Encounter for preprocedural respiratory examination Category: Medical Plan Denny presents for routine follow up and preoperative pulmonary clearance for proposed colonoscopy with Dr. Camejo. He is unable to state if current regimen of trelegy and combivent are effective as he never reports feeling dyspnea on exertion, however fatigues easily and is hypoxic at rest/with exertion. He presented today to have 6MWT performed in hopes of discontinuing supplemental oxygen as he does not use frequently. 6MWT performed today and patient continues to require supplemental oxygen 3-4L to maintain 89-91% at rest. Had long discussion regarding importance of supplemental oxygen use and adverse effects of hypoxia. Also discussed importance of O2 while driving. He was agreement with supplemental oxygen compliance moving forward. Reviewed chest CT which revealed stable nodules with moderate emphysema. Prior PFT from 2021 revealed no obstructive defect, lung volumes normal however DLCO moderately decreased likely secondary to emphysema. His last hospitalization was in October and has not had any recent COPD exacerbations. Respiratory exam today revealed diminished lung sounds throughout with no wheezing, or crackles. Given need for supplemental oxygen and patient's reluctance to use, although procedure is low risk, he would be considered intermediate to high risk for perioperative pulmonary complications. Oxygenation may be impaired with any sedative, careful consideration should be taken. All questions were answered and patient is in agreement of plan. Orders: Orders AMB 6 minute walk 03/10/24 J44.9 - Chronic obstructive pulmonary disease, unspecified Coding Level of Care Code Est Pt Level 4 (68824) Diagnoses COPD (chronic obstructive pulmonary disease) J44.9 Pulmonary nodules R91.8 Encounter for preoperative pulmonary examination Z01.811 CPT Codes Coding ([id number])
[2024-03-10 15:54] VITALS: BP 110/58; PULSE 102; O2SAT 88; BMI 25.1
[2024-03-10 16:49] VITALS: PULSE 94; O2SAT 86
== END 2024-03-19 13:42 | disposition home or self-care (01) ==
PROVIDERS: PCP Nurse Practitioner Family; Visit Provider Nurse Practitioner Family
DX: J44.9 Chronic obstructive pulmonary disease, unspecified (principal); R91.8 Other nonspecific abnormal finding of lung field
CPT/HCPCS: 94618; 99214

== ENCOUNTER 2024-03-15 07:54 | Day surgery (SDC) | payer OTHER, SELFPAY ==
--- NOTE | 2024-03-12 14:15 | P.CONAN_ITS ---
Documented by User: Portia De La Cruz NP 03/12/24 14:19 HPI - Anesthesia Eval Consult details Narrative: 63yo M for Colonoscopy Pulmonary high risk per [facility] [place]. Pt with COPD and need for supplemental O2 but declines. Case reviewed with Dr Soliz. 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) Past Medical History Medical History (Updated 03/12/24 @ 11:51 by Gardenia Rojas NP) Seizure disorder COPD (chronic obstructive pulmonary disease) Social History Social History Household Members: Spouse Housing: House Do you presently have visiting nurse or other home services: No Patient Tobacco Use Status: Former Tobacco user Tobacco use type: Cigarette Cigarette Packs Per Day: 1 Years Smoked: 50 Second Hand Smoke Exposure: No Advance Directives: No Advance Directives Information Provided: Yes service: No Meds Allergies Allergy/AdvReac Type Severity Reaction Status Date / Time No Known Allergies Allergy Verified 03/10/24 15:58 [No Known Allergies*] Home Medications ?Medication ?Instructions ?Recorded ?Confirmed ?Last Taken ?Type phenytoin 50 mg chewable tablet 50 mg PO QAM 10/29/23 12/03/23 10/29/23 History phenytoin sodium extended 100 mg 500 mg PO QAM 10/29/23 12/03/23 10/29/23 History capsule albuterol sulfate 90 mcg/actuation inhalation 03/10/24 Unknown History aerosol inhaler ascorbate calcium (vitamin C) 500 500 mg PO DAILY 03/10/24 Unknown History mg tablet magnesium oxide 500 mg capsule 1,000 mg PO DAILY 03/10/24 Unknown History Exam Pertinent Lab Results Pertinent Lab Results: Laboratory Tests 10/30/23 05:53 WBC 8.2 Hgb 14.3 Hct 43.2 Plt Count 209 Sodium 139 Potassium 4.3 Chloride 105 Carbon Dioxide 26 BUN 12 Creatinine 0.82 Narrative Narrative: 6 Minute Walk 02/2024 Time:: 16:20 SPO2 % at rest: 86 Pulse at rest: 94 SPO2 % during excercise: 89 Pulse during excercise: 98 SPO2 % after excercise: 94 Pulse after excercise: 95 Performance Observations:: Patient was sitting at rest without O2 with O2 saturation at 86-87 with pulse rate of 94. O2 applied at 2L with little effect O2 increased to 3L with O2 sat 89-90. Patient walked approx 10 yards and O2 saturation decreased to 88. Increased O2 to 4L and and O2 sat at rest recovered to 93-94%. Patient denies feeling shortness of breath. Patient required supplemental O2 both at rest and with minimal walking. Assessment and Plan Assessment Anesthesia Assessment: Chart Reviewed Documented by User: Rafael Hayden MD 03/15/24 08:04 [facility] Past Medical History Medical History (Updated 03/12/24 @ 11:51 by Gardenia Rojas NP) Seizure disorder COPD (chronic obstructive pulmonary disease) Family History Family history of problems with anesthesia: No Surgical History History of Problems with Anesthesia: No Social History Social History Household Members: Spouse Housing: House Do you presently have visiting nurse or other home services: No Patient Tobacco Use Status: Former Tobacco user Tobacco use type: Cigarette Cigarette Packs Per Day: 1 Years Smoked: 50 Second Hand Smoke Exposure: No Advance Directives: No Advance Directives Information Provided: Yes service: No Meds Allergies Allergy/AdvReac Type Severity Reaction Status Date / Time No Known Allergies Allergy Verified 03/10/24 15:58 [No Known Allergies*] Home Medications ?Medication ?Instructions ?Recorded ?Confirmed ?Last Taken ?Type phenytoin 50 mg chewable tablet 50 mg PO QAM 10/29/23 12/03/23 10/29/23 History phenytoin sodium extended 100 mg 500 mg PO QAM 10/29/23 12/03/23 10/29/23 History capsule albuterol sulfate 90 mcg/actuation inhalation 03/10/24 Unknown History aerosol inhaler ascorbate calcium (vitamin C) 500 500 mg PO DAILY 03/10/24 Unknown History mg tablet magnesium oxide 500 mg capsule 1,000 mg PO DAILY 03/10/24 Unknown History Exam Airway Mallampati Class: II TM Dist: >3cm Neck ROM: Full Denture: Upper Loose/Missing/Broken Teeth: No Heart: rrr Lungs: cta Assessment and Plan Assessment Anesthesia Assessment: Anesthesia Plan Discussed Final Anesthetic Review Family History of Problems with Anesthesia: No History of Problems with Anesthesia: No NPO: Yes ASA Class: III Final Preanesthetic Review: No Changes in Pt Med Stat, Meds/Allgs Chart Reviewed, Consent Obtained/Reviewed and Anes Risks/Benef Reviewed Patient Risk: Intermediate Procedure Risk: Intermediate Anesthetic Plan Anesthetic Plan: GA Disposition: Standard PACU
--- NOTE | 2024-03-15 06:03 | P.HPSUR_ITS ---
Pre-Procedural Eval Section A - 24 Hr Update-Section A only Date of Service: 03/15/24 Section B - Complete if H&P > 30 days Chief Complaint: Encounter for screening for malignant neoplasm of Relevant Family History (Specify if Yes): No Relevant Social History: None Present Medications: see Short Stay Collaborative assessment Medical History: Significant History ( Seizure disorder COPD (chronic obstruct [place] pulmonary disease)) History of Previous Operations: No relevant previous surgery Allergies: Allergies Allergy/AdvReac Type Severity Reaction Status Date / Time No Known Allergies Allergy Verified 03/10/24 15:58 [No Known Allergies*] Review of Systems Sugical H&P ROS: Negative: Constitution, Cardiovascular, Respiratory, Neurological, Psychiatric, Hem-Onc, Allergic/Immunologic, Gastrointestinal, Genitourinary, Musculoskeletal, Integumentary, Endocrine and Eyes/Ears/Nose/Throat Exam Surgical H&P Exam: Normal: HEENT, Normal: Heart, Normal: Extremities, Normal: Abdomen, Normal: Skin and Normal: Neurological and Significant Findings: Lungs (reduced air entry both lungs) Plan Diagnosis/Plan: Unchanged I have reviewed the history and physical and performed a pertinent physical examination on my patient. No changes have occurred unless specified. Time Spent With Patient Time: Total time managing care of this patient today ____ minutes.
[2024-03-15 08:08] VITALS: BMI 24.6
[2024-03-15] MEDS: Lactated Ringers 1,000 ML 100 ML IVCONT (08:23)
--- NOTE | 2024-03-15 08:29 | HO.OPN-COLON ---
Colonoscopy Operative Note Operative Note Date of Service: 03/15/24 Narrative: Operative Information Procedure Description: Colonoscopy Indication: screening Anesthesia: MAC COLONOSCOPY Instrument: Olympus variable stiffness pediatric scope 190L Colonoscopy Monitoring: Vital signs and clinical assessment, continuous EKG monitoring, Pulse oximetry, Carbon Dioxide monitoring and blood pressure monitoring were done throughout the procedure. Colon withdrawal time was 8 minutes. Procedure: The patient was placed in the left lateral decubitis position and pre-procedure medications were administered. After a digital rectal examination of the ano-rectum, the video colonoscope was inserted into the rectum and advanced through the colon to the cecum/TI. The colonoscope was slowly withdrawn in a retrograde panoramic fashion and the colon mucosa was carefully examined including a retroflexed view of the rectum. Findings and interventions are described below. Procedure Difficulty: easy Findings: Terminal Ileum-normal Cecum: 4-6 mm sessile polyp removed with cold forceps right sided retroflexion- normal Ascending Colon: normal Transverse Colon -normal Descending Colon:normal Sigmoid Colon: normal Rectum: Retroflexion with small internal hemorrhoids seen, grade I, 8-9 mm sessile polyp removed with cold snare Anorectum - normal Intervention: cold snare, biopsy forceps polypectomy Colon preparation: [place] Bowel Preparation Scale Right colon; 2 Transverse colon: 3 Left colon; 3 (0 = Unprepared colon segment with mucosa not seen due to solid stool that cannot be cleared. 1 = Portion of mucosa of the colon segment seen, but other areas of the colon segment not well seen due to staining, residual stool and/or opaque liquid. 2 = Minor amount of residual staining, small fragments of stool and/or opaque liquid, but mucosa of colon segment seen well. 3 = Entire mucosa of colon segment seen well with no residual staining, small fragments of stool or opaque liquid) Impression and Post Procedure Diagnosis: colon polyps internal hemorrhoids Plan: High fiber diet leaflet Avoid straining at stool, epsom salts and sitz bath, anusol supps or cream Repeat Colonoscopy in 5 years or earlier if clinically indicated Above findings were reviewed with the patient and relevant handouts were provided if indicated.
[2024-03-15 09:42] VITALS: BP 108/66; PULSE 81; RESP 18; TEMP 36.6; O2SAT 93
[2024-03-15 09:57] VITALS: BP 106/64; PULSE 86; RESP 18; TEMP 36.6; O2SAT 92
== END 2024-03-15 10:16 | disposition home or self-care (01) ==
PROVIDERS: PCP Nurse Practitioner Family; Visit Provider Internal Medicine Gastroenterology
PROC: 0DJD8ZZ Inspection of Lower Intestinal Tract, Via Natural or Artificial Opening Endoscopic (ICD-10-PCS; CPT 45378; principal; 2024-03-15 09:20)
DX: Z12.11 Encounter for screening for malignant neoplasm of colon (principal); D12.0 Benign neoplasm of cecum; K62.1 Rectal polyp; G40.909 Epilepsy, unspecified, not intractable, without status epilepticus; J44.9 Chronic obstructive pulmonary disease, unspecified; Z79.899 Other long term (current) drug therapy
CPT/HCPCS: 45385; 45380; 88305; J2704

== ENCOUNTER → 2024-03-15 07:54 | Outpatient (BNV) | payer OTHER, SELFPAY | PROVIDERS: PCP Nurse Practitioner Family; Visit Provider Internal Medicine Gastroenterology | DX: Z12.11 Encounter for screening for malignant neoplasm of colon (principal); D12.0 Benign neoplasm of cecum; K62.1 Rectal polyp; K64.0 First degree hemorrhoids | CPT/HCPCS: 45380; 45385 ==

== ENCOUNTER → 2024-04-14 09:51 | Outpatient (REF) | payer OTHER, SELFPAY ==
--- NOTE | 2024-04-14 09:54 | CA_ITS ---
Transthoracic Echocardiogram Patient (Last, First, Middle): Denny Gtz J Gender: Male Date of : 1960 Age: 63 Procedure Date: 04/14/2024 Procedure Type: Transthoracic Echocardiogram Location: OP Height: 162.56 cm Weight: 65.77 kg BSA: 1.71 m2 Heart Rate: bpm BP: 122 / 70 mmHg Toxicology Teacher: DIEUDONNE Referring MD: Gardenia Rojas FLATWORK FINISHER Ordnance Mechanic: Juan Francisco Lu MD Symptoms: R06.00 - Dyspnea, unspecified Study Quality: Good ECG Rhythm: Sinus Conclusions: - 1. Normal LV ejection fraction at 55-60% with grade 1 diastolic dysfunction 2. Cardiac valvular Dopplers within normal limits 3. Normal RV systolic pressure 4. No gross pericardial effusion Findings Left Ventricle Normal left ventricular size, thickness, and systolic function. The visually estimated ejection fraction is between 55-60%. Spectral Doppler is indicative of an impaired relaxation filling pattern. E/E prime ratio is <8, consistent with normal filling pressures. Evidence suggests grade I (mild) diastolic dysfunction. Right Ventricle Normal right ventricular cavity size and systolic function. Atria The left atrium is likely dilated. There is lipomatous hypertrophy of the interatrial septum. There is no evidence of interatrial shunt. The right atrium is normal in size. Aortic Valve Normal aortic valve structure and function. There is no aortic valve stenosis. There is no aortic valve regurgitation. Mitral Valve There is mild anterior mitral leaflet thickening. There is trace mitral valve regurgitation. There is no mitral valve stenosis. Pulmonic Valve The pulmonic valve is likely normal. There is trace pulmonic valve regurgitation. Tricuspid Valve Normal tricuspid valve structure. There is trace tricuspid valve regurgitation. The right ventricular systolic pressure is normal. The right ventricular systolic pressure is 28 mmHg. Normal right atrial pressure. There is no evidence of pulmonary hypertension. Great Vessels All visible segments of the aorta are normal in size. The pulmonary artery was not well visualized. Venous The inferior vena cava is normal in size and collapses greater than 50% with inspiration. Pericardium/Pleural There is no evidence of pericardial effusion. Prior Study Comparison No prior study available for comparison. Measurements 2D Linear Measurements IVSd: 0.99 0.6-0.9/0.6-1.0 cm LVIDd: 4.44 3.9-5.3/4.2-5.9 cm LVIDd Index: 2.60 2.4-3.2/2.2-3.1 cm/m2 LVIDs: 2.94 2.0-3.6 cm LVPWd: 1.09 0.7-1.1 cm Ao Root: 3.50 2.1-3.5 cm LA Diam: 3.60 2.7-3.8/3.0-4.0 cm LAIDs Index: 2.11 1.5-2.3 cm/m2 LV Mass: 197.62 67-162/88-224 g LV Mass Index: 115.57 43-95/49-115 g/m2 LVOT Diam: 2.10 3.0+(-)1.3 cm 2D Systolic Function EF 4C: 58.30 >55% EF 2C: 52.60 >55% EF BiP: 55.80 >55% Mitral Valve MV VTI: 0.25 MV Pk Moose: 0.89 MV Mn Moose: 0.57 MV Pk Grad: 3.00 MV Mn Grad: 1.00 MV Pk E: 0.75 MV PK A: 0.84 MV Decel Time: 211.00 E/A: 0.90 E'Lateral: 7.72 E'Medial: 4.68 E/E' Med: 16.00 E/E' Lat: 9.70 PHT: 62.00 MVA PHT: 3.55 MVA Continuity: 2.40 Decel Platte: 3.56 Aortic Valve AoV Pk Moose: 1.29 AoV Pk Grad: 7.00 LVOT LVOT Pk Moose: 0.81 LVOT Mn Moose: 0.53 LVOT VTI: 0.17 LVOT Pk Grad: 3.00 LVOT Mn Grad: 1.00 LVOT Diam: 2.10 LVOT Area: 3.46 Diastolic Function MV Pk E: 0.75 MV Pk A: 0.84 E/A: 0.90 E'Medial: 4.68 E/E' Med: 16.00 E' Laterial: 7.72 E/E' Lat: 9.70 Right Ventricle TAPSE (mm): 19.00 TVS' Moose: 12.00 Tricuspid Valve TR Pk Moose: 2.52 TR Pk Grad: 25.00 RA Press: 3.00 RVSP: 28.00 Great Vessels Aorta Ao Root-2D: 3.50 2.0-3.7 cm Ao Asc: 3.10 2.1-3.4 cm Pulmonary Valve PV Pk Moose: 0.79 Peak PV Grad: 2.00 Updated in Other Vendor System with Status of Final Juan Francisco Lu MD electronically signed on 04/14/2024 11:37:16 AM with status of Final
== END ==
LOC: HO.CARD 09:51
PROVIDERS: PCP Nurse Practitioner Family; Visit Provider Nurse Practitioner Family
DX: R06.00 Dyspnea, unspecified (principal)
CPT/HCPCS: 93306

== ENCOUNTER → 2024-04-14 09:54 | Outpatient (BNV) | payer OTHER, SELFPAY | PROVIDERS: PCP Nurse Practitioner Family; Visit Provider Internal Medicine Cardiovascular Disease | DX: I51.89 Other ill-defined heart diseases (principal) | CPT/HCPCS: 93306 ==

== ENCOUNTER 2024-04-23 15:14 | Outpatient (AMB) | payer OTHER, SELFPAY ==
--- NOTE | 2024-04-23 15:17 | A.OFFVIS_ITS ---
Vital Signs 04/23/24 15:19 Height 5 ft 4 in Weight 144 lb 6 oz BMI 24.8 BP 110/64 Blood Pressure Location Rt brachial Position Sitting Pulse 93 Pulse Source Pulse Oximeter Pulse Oximetry (%) 87 L Oxygen Delivery Method Room Air Intake Visit Reasons: dyspnea Allergies No Known Allergies [No Known Allergies*] Allergy (Verified 04/23/24 15:23) HPI HPI dyspnea: Details: Denny is a pleasant 63 year old male former smoker with 40+ pack-year, quit 2020, with underlying COPD, pulmonary nodules and h/o acute respiratory failure with hypoxemia requiring supplemental oxygen 3L with exertion. Patient notes his oxygen saturation on room air is 88-90%, using supplemental oxygen PRN. Upon arrival to exam room patient 87% however increased to 92% with rest. He continues to report fatiguing easily, and resting frequently, however remains quite active. He has developed a productive cough with difficulty expectorating and chest congestion over the last few days. Denies any fevers or chills. 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 He denies worsening dyspnea, wheezing or chest tightness. Today he presents to review echo results. [facility] Medical History (Updated 03/15/24 @ 08:13 by Gardenia Rojas NP) Seizure disorder COPD (chronic obstructive pulmonary disease) Social History Household Members: Spouse Housing: House Do you presently have visiting nurse or other home services: No Patient Tobacco Use Status: Former Tobacco user Tobacco use type: Cigarette Cigarette Packs Per Day: 1 Years Smoked: 50 Second Hand Smoke Exposure: No service: No Review of Systems Const Denies chills, Denies excessive sweating, Denies fever(s), Denies headache(s) and Denies night sweats Eyes Denies dry eyes, Denies irritation and Denies itchy eyes ENT Reports Normal hearing present, Denies headache(s), Denies nasal congestion, Denies nasal discharge, Denies post nasal drip and Denies sore throat Card Denies chest pain, Denies chest pain at rest, Denies chest pain with activity, Denies claudication, Denies leg edema, Denies orthopnea and Denies paroxysmal nocturnal dyspnea Resp Denies excessive phlegm production, Denies pain on inspiration, Denies pain with cough, Denies stridor and Denies wheezing Musc Denies myalgias Neuro Reports Normal hearing present and Denies headache(s) Endo Denies excessive sweating Mc/Lymph Denies lymphadenopathy Aller/Immun Denies itchy eyes, Denies seasonal rhinorrhea and Denies wheezing Physical Exam Vital Signs: Last Vital Signs Pulse 93 04/23/24 15:19 BP 110/64 04/23/24 15:19 Pulse Ox 87 L 04/23/24 15:19 Oxygen Delivery Method Room Air 04/23/24 15:19 BMI result Body Mass Index 24.8 Const General: cooperative, comfortable, no acute distress, well developed and alert Orientation/consciousness: patient oriented x3 Limitations: no limitations HEENT Head: Yes normal to inspection, Yes normocephalic and Yes atraumatic Ears: hearing grossly normal bilaterally and external ears normal Eyes General: appearance normal, both eyes and all related structures Eyelids: Yes eyelids normal Sclerae: sclerae normal EOM: EOMs intact bilaterally Neck Neck: Yes normal visual inspection and Yes no lymphadenopathy Lymphatic: no lymphadenopathy noted Chest Chest palpation & inspection: normal inspection of the chest Resp Effort & Inspection: normal respiratory effort, able to speak in complete sentences, no audible wheezes, no cough, no stridor, not tachypneic and no use of accessory muscles Auscultation: diminished lung sounds Cardio Jugular venous distension: no JVD Rate: regular rate Rhythm: regular rhythm Skin Other: warm, dry General skin exam: no rashes or lesions noted Neuro General: patient oriented x3 Cranial nerves: Yes Normal hearing present Cognition (Neuro): normal cognition Gait exam (Neuro): Normal gait present Extrem General: Yes no pedal edema and Yes clubbing Psych Appearance: grossly normal and well kempt Speech and movement: Normal speech and movement present and Clear speech present Affect: normal affect Attitude: cooperative Thought process: Normal thought process present Thought content: Normal thought content present Insight: Good insight present (Psych) Judgement: Good judgement present (Psych) Results Reviewed Results Reviewed: [address] [address] Cardiology Report Signed Patient: Denny Gtz Jr MR#: [id number] : 1960 Acct:[id number] Age/Sex: 63 / M ADM Date: 04/14/24 Loc: HO.CARD Attending Dr: Gardenia Rojas NP Ordering Physician: Gardenia Rojas NP Date of Service: 04/14/24 Procedure(s): CA echo transthoracic complete Accession Number(s): cc: Gardenia Rojas NP~ Transthoracic Echocardiogram Patient (Last, First, Middle): Denny Gtz J Gender: Male Date of : 1960 Age: 63 Procedure Date: 04/14/2024 Procedure Type: Transthoracic Echocardiogram Location: OP Height: 162.56 cm Weight: 65.77 kg BSA: 1.71 m2 Heart Rate: bpm BP: 122 / 70 mmHg Degree Clerk: DIEUDONNE Referring MD: Gardenia Rojas NP Metals Analyst: Juan Francisco Lu MD Symptoms: R06.00 - Dyspnea, unspecified Study Quality: Good ECG Rhythm: Sinus Conclusions: - 1. Normal LV ejection fraction at 55-60% with grade 1 diastolic dysfunction 2. Cardiac valvular Dopplers within normal limits 3. Normal RV systolic pressure 4. No gross pericardial effusion Findings Left Ventricle Normal left ventricular size, thickness, and systolic function. The visually estimated ejection fraction is between 55-60%. Spectral Doppler is indicative of an impaired relaxation filling pattern. E/E prime ratio is <8, consistent with normal filling pressures. Evidence suggests grade I (mild) diastolic dysfunction. Right Ventricle Normal right ventricular cavity size and systolic function. Atria The left atrium is likely dilated. There is lipomatous hypertrophy of the interatrial septum. There is no evidence of interatrial shunt. The right atrium is normal in size. Aortic Valve Normal aortic valve structure and function. There is no aortic valve stenosis. There is no aortic valve regurgitation. Mitral Valve There is mild anterior mitral leaflet thickening. There is trace mitral valve regurgitation. There is no mitral valve stenosis. Pulmonic Valve The pulmonic valve is likely normal. There is trace pulmonic valve regurgitation. Tricuspid Valve Normal tricuspid valve structure. There is trace tricuspid valve regurgitation. The right ventricular systolic pressure is normal. The right ventricular systolic pressure is 28 mmHg. Normal right atrial pressure. There is no evidence of pulmonary hypertension. Great Vessels All visible segments of the aorta are normal in size. The pulmonary artery was not well visualized. Venous The inferior vena cava is normal in size and collapses greater than 50% with inspiration. Pericardium/Pleural There is no evidence of pericardial effusion. Prior Study Comparison No prior study available for comparison. Measurements 2D Linear Measurements IVSd: 0.99 0.6-0.9/0.6-1.0 cm LVIDd: 4.44 3.9-5.3/4.2-5.9 cm LVIDd Index: 2.60 2.4-3.2/2.2-3.1 cm/m2 LVIDs: 2.94 2.0-3.6 cm LVPWd: 1.09 0.7-1.1 cm Ao Root: 3.50 2.1-3.5 cm LA Diam: 3.60 2.7-3.8/3.0-4.0 cm LAIDs Index: 2.11 1.5-2.3 cm/m2 LV Mass: 197.62 67-162/88-224 g LV Mass Index: 115.57 43-95/49-115 g/m2 LVOT Diam: 2.10 3.0+(-)1.3 cm 2D Systolic Function EF 4C: 58.30 >55% EF 2C: 52.60 >55% EF BiP: 55.80 >55% Mitral Valve MV VTI: 0.25 MV Pk Moose: 0.89 MV Mn Moose: 0.57 MV Pk Grad: 3.00 MV Mn Grad: 1.00 MV Pk E: 0.75 MV PK A: 0.84 MV Decel Time: 211.00 E/A: 0.90 E'Lateral: 7.72 E'Medial: 4.68 E/E' Med: 16.00 E/E' Lat: 9.70 PHT: 62.00 MVA PHT: 3.55 MVA Continuity: 2.40 Decel [place]: 3.56 Aortic Valve AoV Pk Moose: 1.29 AoV Pk Grad: 7.00 LVOT LVOT Pk Moose: 0.81 LVOT Mn Moose: 0.53 LVOT VTI: 0.17 LVOT Pk Grad: 3.00 LVOT Mn Grad: 1.00 LVOT Diam: 2.10 LVOT Area: 3.46 Diastolic Function MV Pk E: 0.75 MV Pk A: 0.84 E/A: 0.90 E'Medial: 4.68 E/E' Med: 16.00 E' Laterial: 7.72 E/E' Lat: 9.70 Right Ventricle TAPSE (mm): 19.00 TVS' Moose: 12.00 Tricuspid Valve TR Pk Moose: 2.52 TR Pk Grad: 25.00 RA Press: 3.00 RVSP: 28.00 Great Vessels Aorta Ao Root-2D: 3.50 2.0-3.7 cm Ao Asc: 3.10 2.1-3.4 cm Pulmonary Valve PV Pk Moose: 0.79 Peak PV Grad: 2.00 Updated in Other Vendor System with Status of Final Juan Francisco Lu MD electronically signed on 04/14/2024 11:37:16 AM with status of Final Dictated By: Juan Francisco Lu MD Signed By: <Electronically signed by Juan Francisco Lu MD in OV> 04/14/24 1137 DD/ 1010 TD/TT: Stitch Bonding Machine Tender: Assessment & Plan Assessment & Plan (1) COPD (chronic obstructive pulmonary disease): Code(s): J44.9 - Chronic obstructive pulmonary disease, unspecified Category: Medical (2) Pulmonary nodules: Code(s): R91.8 - Other nonspecific abnormal finding of lung field Category: Medical Plan Will treat bronchitic symptoms with azithromycin. Patient aware if symptoms do not improve to call office and will obtain a CXR. If symptoms worsen he will seek emergent care. Review echo which revealed LVEF 55-60% with grade I juan stolic dysfunction, RVSP 28, no concerns for pulmonary hypertension at this time. He currently denies BLE edema or orthopnea. He is aware to monitor for these as well as weight changes. Patient has reported minimal improvements with Trelegy and combivent. Advised to continue to use Trelegy and will trial nebulizer. He was given a nebulizer in office for home use duoneb PRN rx sent to pharmacy. All questions were answered and patient is in agreement of plan. Will follow up in two months prior to patient moving out of state, or sooner if needed. Medications: New azithromycin For 250 mg dose pack: take 500 mg today (day 1), then 250 mg for 4 days (days 2-5) PO 6 tabs 0RF ipratropium-albuterol 0.5 mg-3 mg(2.5 mg base)/3 mL 3 mL inhalation Q6H PRN 180 mL 0RF wheezing Coding Level of Care Code Est Pt Level 4 (88788) Diagnoses COPD (chronic obstructive pulmonary disease) J44.9 Pulmonary nodules R91.8
[2024-04-23 15:19] VITALS: BP 110/64; PULSE 93; O2SAT 87; BMI 24.8
== END 2024-04-23 16:14 | disposition home or self-care (01) ==
PROVIDERS: PCP Nurse Practitioner Family; Visit Provider Nurse Practitioner Family
DX: J44.9 Chronic obstructive pulmonary disease, unspecified (principal); R91.8 Other nonspecific abnormal finding of lung field
CPT/HCPCS: 99214

== ENCOUNTER → 2024-04-23 15:14 | Outpatient (BNVA) | payer OTHER, SELFPAY | PROVIDERS: PCP Nurse Practitioner Family; Visit Provider Nurse Practitioner Family ==

== ENCOUNTER 2024-06-22 14:52 | Outpatient (AMB) | payer OTHER, SELFPAY ==
[2024-06-22 14:54] VITALS: BP 100/52; PULSE 114; O2SAT 80; BMI 24.2
--- NOTE | 2024-06-22 14:54 | A.OFFVIS_ITS ---
Vital Signs 06/22/24 14:54 Height 5 ft 4 in Weight 141 lb 2 oz BMI 24.2 BP 100/52 L Blood Pressure Location Rt brachial Position Sitting Pulse 114 H Pulse Source Pulse Oximeter Pulse Oximetry (%) 80 L Oxygen Delivery Method Room Air Intake Visit Reasons: dyspnea Allergies No Known Allergies [No Known Allergies*] Allergy (Verified 06/22/24 15:00) HPI HPI dyspnea: Details: Denny is a pleasant 63 year old male former smoker with 40+ pack-year, quit 2020, with underlying COPD, pulmonary nodules and h/o acute respiratory failure with hypoxemia requiring supplemental oxygen 3L with exertion. At the last visit, he DuoNeb was added to regimen with Trelegy and he reports minimal improvement. He reports checking oxygen saturation frequently on room air is 88- 90%, decreasing to low 80s with exertion however not using supplemental oxygen consistently. Upon arrival to exam room patient 80% however increased to 88% with minimal rest and up to 91% with 2L supplemental oxygen. He continues to report fatiguing easily, and resting frequently, however remains quite active. Today he presents to review overnight oximetry. [facility] Medical History (Updated 03/15/24 @ 08:13 by Gardenia Rojas NP) Seizure disorder COPD (chronic obstructive pulmonary disease) Social History Household Members: Spouse Housing: House Do you presently have visiting nurse or other home services: No Patient Tobacco Use Status: Former Tobacco user Tobacco use type: Cigarette Cigarette Packs Per Day: 1 Years Smoked: 50 Second Hand Smoke Exposure: No service: No Review of Systems Const Denies chills, Denies excessive sweating, Denies fever(s), Denies headache(s) and Denies night sweats Eyes Denies dry eyes, Denies irritation and Denies itchy eyes ENT Reports Normal hearing present, Denies headache(s), Denies nasal congestion, Denies nasal discharge, Denies post nasal drip and Denies sore throat Card Denies chest pain, Denies chest pain at rest, Denies chest pain with activity, Denies claudication, Denies leg edema, Denies orthopnea and Denies paroxysmal nocturnal dyspnea Resp Denies excessive phlegm production, Denies pain on inspiration, Denies pain with cough, Denies stridor and Denies wheezing Musc Denies myalgias Neuro Reports Normal hearing present and Denies headache(s) Endo Denies excessive sweating Mc/Lymph Denies lymphadenopathy Aller/Immun Denies itchy eyes, Denies seasonal rhinorrhea and Denies wheezing Physical Exam Vital Signs: Last Vital Signs Pulse 114 H 06/22/24 14:54 BP 100/52 L 06/22/24 14:54 Pulse Ox 80 L 06/22/24 14:54 Oxygen Delivery Method Room Air 06/22/24 14:54 BMI result Body Mass Index 24.2 Const General: cooperative, comfortable, no acute distress, well developed and alert Orientation/consciousness: patient oriented x3 Limitations: no limitations HEENT Head: Yes normal to inspection, Yes normocephalic and Yes atraumatic Ears: hearing grossly normal bilaterally and external ears normal Eyes General: appearance normal, both eyes and all related structures Eyelids: Yes eyelids normal Sclerae: sclerae normal EOM: EOMs intact bilaterally Neck Neck: Yes normal visual inspection and Yes no lymphadenopathy Lymphatic: no lymphadenopathy noted Chest Chest palpation & inspection: normal inspection of the chest Resp Effort & Inspection: normal respiratory effort, able to speak in complete sentences, no audible wheezes, no cough, no stridor, not tachypneic and no use of accessory muscles Auscultation: diminished lung sounds Cardio Jugular venous distension: no JVD Rate: regular rate Rhythm: regular rhythm Skin Other: warm, dry General skin exam: no rashes or lesions noted Neuro General: patient oriented x3 Cranial nerves: Yes Normal hearing present Cognition (Neuro): normal cognition Gait exam (Neuro): Normal gait present Extrem General: Yes no pedal edema and Yes clubbing Psych Appearance: grossly normal and well kempt Speech and movement: Normal speech and movement present and Clear speech present Affect: normal affect Attitude: cooperative Thought process: Normal thought process present Thought content: Normal thought content present Insight: Good insight present (Psych) Judgement: Good judgement present (Psych) Assessment & Plan Assessment & Plan (1) COPD (chronic obstructive pulmonary disease): Code(s): J44.9 - Chronic obstructive pulmonary disease, unspecified Category: Medical (2) Pulmonary nodules: Code(s): R91.8 - Other nonspecific abnormal finding of lung field Category: Medical Plan At the last visit DuoNeb was added to regimen of Trelegy and he reports minimal improvements in dyspnea. He has been using PRN, advised to use BID. Had long discussion regarding importance of supplemental oxygen including adverse effects of hypoxia including irreversible organ damage and . He was agreeable to use with driving and [facility]. He will be moving out of state and will likely be transferring care to another pulmonary provider. Advised to find a PCP and pulmonary provider as soon as possible, as his COPD is severe. Reviewed overnight oximetry and patient requires 2L of supplemental oxygen at [facility]. Discussed need for in lab PSG however patient moving and plans to discuss this with new provider. All questions were answered and patient is in agreement of plan. Will follow up PRN. Medications: New doxycycline hyclate 100 mg PO BID 14 caps 0RF prednisone 40 mg (2 x 20 mg) PO DAILY 10 tabs 0RF Coding Level of Care Code Est Pt Level 4 (62856) Diagnoses COPD (chronic obstructive pulmonary disease) J44.9 Pulmonary nodules R91.8
== END 2024-06-22 16:18 | disposition home or self-care (01) ==
PROVIDERS: PCP Nurse Practitioner Family; Visit Provider Nurse Practitioner Family
DX: J44.9 Chronic obstructive pulmonary disease, unspecified (principal); R91.8 Other nonspecific abnormal finding of lung field
CPT/HCPCS: 99214

== ENCOUNTER → 2024-06-22 14:52 | Outpatient (BNVA) | payer OTHER, SELFPAY | PROVIDERS: PCP Nurse Practitioner Family; Visit Provider Nurse Practitioner Family ==